=== PATIENT | male | born 1945 | race Caucasian/White ===

== ENCOUNTER 2016-07-13 10:22 | Inpatient (IN) | payer MEDICARE ==
[2016-07-13] MEDS ORDERED: Furosemide 40 MG/4 ML VIAL IVPUSH ONE (10:28)
--- NOTE | 2016-07-13 11:03 | CR ---
Portable chest There is cardiac enlargement. There is mild vascular engorgement. There is diffuse increase of the i nterstitial markings. There are no alveolar infiltrates. There are no effusions. Impression: 1. CHF with mild interstitial edema.
--- NOTE | 2016-07-13 11:28 | EDM.PDOC ---
ED HPI Skin/Rash - General Chief Complaint: Skin Complaint Stated Complaint: LEG PAIN Time Seen by Provider: 07/13/16 10:35 Source: Reports: Patient, EMS History Limitations: Reports: No limitations - History of Present Illness INITIAL COMMENTS - FREE TEXT/NARRATIVE: 70-year-old male brought in by ambulance because of shortness of breath, increased peripheral edema, redness of his legs and leg pain. He says he hasn' t been feeling well for about 1 to 2 months, but over the last 2-3 days his breathing has become much worse, his legs more swollen and painful. He does have home health nursing who called after his arrival and said he "cannot return home, he's vulnerable". He denies any fevers or chills, denies nausea or vomiting. He has had no chest pain. His main concern is his breathing, and pain in his legs. He does not have oxygen at home, on arrival EMS found him to have saturations in the 80s. He responded well to a DuoNeb in route and nasal cannula oxygen. He does not want to be intubated, he is DO NOT RESUSCITATE. Timing: Reports: still present Severity: moderate Associated symptoms: Reports: shortness of breath, cough (Small amount of production), malaise. 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: Reports: Breathing treatments, Other medication(s), Oxygen - Related Data Allergies Allergy/AdvReac Type Severity Reaction Status Date / Time No Known Allergies Allergy Verified 07/13/16 11:11 Home Meds: Ambulatory Orders Medication Instructions Recorded Confirmed Albuterol [Proair HFA] 2 puff INH QID PRN 07/13/16 07/13/16 Carvedilol [Carvedilol] 3.125 mg PO BID 07/13/16 07/13/16 Fluticasone/Salmeterol [Advair 1 puff INH BEDTIME 07/13/16 07/13/16 250-50 Diskus] Furosemide [Furosemide] 1 tab PO DAILY 07/13/16 07/13/16 Insulin Glarg,Human.Rec.Analog 20 units SQ BEDTIME 07/13/16 07/13/16 [Lantus Solostar] Naproxen 500 mg PO BID 07/13/16 07/13/16 Simvastatin [Simvastatin] 20 mg PO BEDTIME 07/13/16 07/13/16 metFORMIN HCl [Metformin HCl] 1,000 mg PO BID 07/13/16 07/13/16 Social & Family History - Tobacco Use Smoking Status *Q: Former Smoker Years of Tobacco use: 50 Packs/Tins Daily: 2 - Caffeine Use Caffeine Use: Reports: Coffee - Recreational Drug Use Recreational Drug Use: No ED ROS GENERAL - Review of Systems Review Of Systems: See Below Constitutional: Reports: malaise, weakness. Denies: fever, chills HEENT: Reports: No symptoms Respiratory: Reports: shortness of breath, cough, sputum Cardiovascular: Denies: Chest pain GI/Abdominal: Denies: Abdominal pain Musculoskeletal: Reports: leg pain (Bilateral) Skin: Reports: erythema (Left lower leg is erythematous, both legs have superficial excoriations that are healing) Neurological: Reports: difficulty walking, weakness. Denies: confusion, headache Psychiatric: Reports: No symptoms ED EXAM, SKIN/RASH Exam: See Below Exam Limited By: No limitations General Appearance: alert, no apparent distress, other (Despite appearing dusky his mental status is intact and he is not in distress) Eye Exam: bilateral eye: EOMI Head: atraumatic Neck: normal inspection Respiratory/Chest: wheezing (Diffuse widespread expiratory wheezes, some decreased air movement on the right) Cardiovascular: regular rate, rhythm GI/Abdominal: soft, non tender, distended (Abdomen seems distended, it may just be obesity) Extremities: other (Tense edema of both lower extremities almost to the hips. Both lower extremities have superficial excoriations, the left lower extremity has diffuse erythema.) Neurological: alert, oriented Psychiatric: normal affect, normal mood Skin: Other (Legs are as described above, he also has a fairly large bruise across the left anterior chest from recent fall) EKG INTERPRETATION Rhythm: NSR EKG Interpretation Comments: Q waves are present in the inferior leads, no direct evidence of ST elevation Course - Vital Signs Last Recorded V/S: Last Vital Signs Temp 97.9 F 07/13/16 11:26 Pulse 85 07/13/16 14:38 Resp 20 07/13/16 11:37 BP 129/83 07/13/16 12:22 Pulse Ox 97 07/13/16 11:37 - Orders/Labs/Meds Orders: Active Orders 24 hr Category Date Time Status CULTURE BLOOD [BC] Urgent Lab 07/13/16 10:35 Received CULTURE BLOOD [BC] Urgent Lab 07/13/16 10:35 Received Blood Culture x2 Reflex Set [OM.PC] Urgent Oth 07/13/16 10:27 Ordered EKG 12 Lead [EK] Routine Ther 07/13/16 10:26 Stop Req Medication Orders Acetaminophen (Tylenol) 650 mg PO Q4H PRN PRN Reason: Pain (Mild 1-3)/fever Albuterol (Ventolin Hfa) 0 gm INH QID PRN PRN Reason: Shortness of Breath Albuterol (Proventil Neb Soln) 2.5 mg NEB Q4H PRN PRN Reason: Shortness Of Breath/wheezing Albuterol/Ipratropium (Duoneb 3.0-0.5 Mg/3 Ml) 3 ml NEB QIDRT [facility] Last Admin: 07/13/16 14:38 Dose: 3 ml Carvedilol (Coreg) 3.125 mg PO DAILY [facility] Dextrose (Glutose 15) 15 gm PO ASDIRECTED PRN PRN Reason: Hypoglycemia Dextrose/Water (Dextrose 50% In Water) 50 ml IV ASDIRECTED PRN PRN Reason: Hypoglycemia Docusate Sodium (Colace) 100 mg PO BID PRN PRN Reason: Constipation Enoxaparin Sodium (Lovenox) 30 mg SUBCUT Q24H [facility] Furosemide (Lasix) 80 mg IVPUSH Q12H [facility] Piperacillin/Tazobactam/ (Dextrose 3.375 gm/ Premix) 50 mls @ 100 mls/hr IV Q6H [facility] Insulin Aspart (Novolog) 0 unit SUBCUT ASDIRECTED [facility] PRN Reason: Protocol Insulin Detemir (Levemir) 20 unit SUBCUT BEDTIME [facility] Magnesium Hydroxide (Milk Of Magnesia) 30 ml PO Q12H PRN PRN Reason: Constipation Mometasone Furoate/Formoterol Fumar (Dulera 200-5 Mcg) 1 puff IH BEDTIME [facility] Ondansetron HCl (Zofran) 4 mg IV Q4H PRN PRN Reason: Nausea/Vomiting Oxycodone HCl (Oxycodone) 5 mg PO Q4H PRN PRN Reason: Pain (moderate 4-6) Polyethylene Glycol (Miralax) 17 gm PO DAILY PRN PRN Reason: Constipation Simvastatin (Zocor) 20 mg PO BEDTIME [facility] Sodium Chloride (Saline Flush) 10 ml FLUSH ASDIRECTED PRN PRN Reason: Keep Vein Open Labs: Laboratory Tests 07/13/16 07/13/16 07/13/16 Range/Units 10:26 10:35 10:35 WBC 15.3 H (4.5-11.0) K/uL RBC 4.67 (4.30-5.90) M/uL Hgb 13.3 (12.0-15.0) g/dL Hct 43.1 (40.0-54.0) % MCV 92 (80-98) fL MCH 29 (27-31) pg MCHC 31 L (32-36) % Plt Count 260 (150-400) K/uL Neut % (Auto) 86 H (36-66) % Lymph % (Auto) 3 L (24-44) % Hart % (Auto) 10 H (2-6) % Eos % (Auto) 0 L (2-4) % Baso % (Auto) 0 (0-1) % Puncture Site Lt brachial ABG pH 7.364 (7.350-7.450) ABG pCO2 38.2 (35.0-42.0) mmHg ABG pO2 103.0 H (75.0-100.0) mmHg ABG HCO3 21.2 L (22.0-26.0) mmol/L ABG Total CO2 19.1 L (23.0-27.0) mmol/L ABG O2 Saturation 97.7 (95.0-98.0) % ABG O2 Content 17.3 (15.0-23.0) %vol ABG Base Excess -3.2 mm/L ABG Hemoglobin 12.9 L (13.5-18.0) g/dL ABG Oxyhemoglobin 94.8 % ABG Carboxyhemoglobin 2.5 H (0.0-1.6) % ABG Methemoglobin 0.5 % Parish Test Passed O2 Delivery Device Nasal cannula Oxygen Flow Rate 2 L Sodium 136 L (140-148) mmol/L Potassium 4.4 (3.6-5.2) mmol/L Chloride 101 (100-108) mmol/L Carbon Dioxide 28 (21-32) mmol/L Anion Gap 11.4 (5.0-14.0) mmol/L BUN 59 H (7-18) mg/dL Creatinine 2.0 H (0.8-1.3) mg/dL Est Cr Clr Drug Dosing 33.88 mL/min Estimated GFR (MDRD) 33 L (>60) Glucose 156 H (74-106) mg/dL Lactic Acid (0.4-2.0) mmol/L Calcium 8.9 (8.5-10.1) mg/dL Total Bilirubin 1.4 H (0.2-1.0) mg/dL AST 46 H (15-37) U/L ALT 34 (12-78) U/L Alkaline Phosphatase 315 H (46-116) U/L Troponin I 0.093 H* (0.000-0.056) ng/mL Total Protein 7.6 (6.4-8.2) g/dL Albumin 3.1 L (3.4-5.0) g/dL Globulin 4.5 H (2.3-3.5) g/dL Albumin/Globulin Ratio 0.7 L (1.2-2.2) Urine Color Urine Appearance Urine pH (4.5-8.0) Ur Specific [place] (1.008-1.030) Urine Protein (NEGATIVE) mg/dL Urine Glucose (UA) (NEGATIVE) mg/dL Urine Ketones (NEGATIVE) mg/dL Urine Occult Blood (NEGATIVE) Urine Nitrite (NEGAITVE) Urine Bilirubin (NEGATIVE) Urine Urobilinogen (NORMAL) mg/dL Ur Leukocyte Esterase (NEGATIVE) Urine RBC (0-5) Urine WBC (0-5) Ur Epithelial Cells Amorphous Sediment Urine Bacteria Urine Mucus 07/13/16 07/13/16 Range/Units 10:35 11:34 WBC (4.5-11.0) K/uL RBC (4.30-5.90) M/uL Hgb (12.0-15.0) g/dL Hct (40.0-54.0) % MCV (80-98) fL MCH (27-31) pg MCHC (32-36) % Plt Count (150-400) K/uL Neut % (Auto) (36-66) % Lymph % (Auto) (24-44) % Hart % (Auto) (2-6) % Eos % (Auto) (2-4) % Baso % (Auto) (0-1) % Puncture Site ABG pH (7.350-7.450) ABG pCO2 (35.0-42.0) mmHg ABG pO2 (75.0-100.0) mmHg ABG HCO3 (22.0-26.0) mmol/L ABG Total CO2 (23.0-27.0) mmol/L ABG O2 Saturation (95.0-98.0) % ABG O2 Content (15.0-23.0) %vol ABG Base Excess mm/L ABG Hemoglobin (13.5-18.0) g/dL ABG Oxyhemoglobin % ABG Carboxyhemoglobin (0.0-1.6) % ABG Methemoglobin % Parish Test O2 Delivery Device Oxygen Flow Rate L Sodium (140-148) mmol/L Potassium (3.6-5.2) mmol/L Chloride (100-108) mmol/L Carbon Dioxide (21-32) mmol/L Anion Gap (5.0-14.0) mmol/L BUN (7-18) mg/dL Creatinine (0.8-1.3) mg/dL Est Cr Clr Drug Dosing mL/min Estimated GFR (MDRD) (>60) Glucose (74-106) mg/dL Lactic Acid 3.0 H (0.4-2.0) mmol/L Calcium (8.5-10.1) mg/dL Total Bilirubin (0.2-1.0) mg/dL AST (15-37) U/L ALT (12-78) U/L Alkaline Phosphatase (46-116) U/L Troponin I (0.000-0.056) ng/mL Total Protein (6.4-8.2) g/dL Albumin (3.4-5.0) g/dL Globulin (2.3-3.5) g/dL Albumin/Globulin Ratio (1.2-2.2) Urine Color Yellow Urine Appearance Clear Urine pH 5.0 (4.5-8.0) Ur Specific [place] 1.020 (1.008-1.030) Urine Protein Negative (NEGATIVE) mg/dL Urine Glucose (UA) Normal (NEGATIVE) mg/dL Urine Ketones Negative (NEGATIVE) mg/dL Urine Occult Blood Negative (NEGATIVE) Urine Nitrite Negative (NEGAITVE) Urine Bilirubin Negative (NEGATIVE) Urine Urobilinogen Normal (NORMAL) mg/dL Ur Leukocyte Esterase Negative (NEGATIVE) Urine RBC 0-5 (0-5) Urine WBC Not seen (0-5) Ur Epithelial Cells Not seen Amorphous Sediment Not seen Urine Bacteria Not seen Urine Mucus Not seen Meds: Medications Generic Name Dose Route Start Last Admin Trade Name Freq PRN Reason Stop Dose Admin Acetaminophen 650 mg 07/13/16 13:30 Tylenol PO Q4H PRN Pain (Mild 1-3)/fever Albuterol 0 gm 07/13/16 13:30 Ventolin Hfa INH QID PRN Shortness of Breath Albuterol 2.5 mg 07/13/16 13:30 Proventil Neb Soln NEB Q4H PRN Shortness Of Breath/wheezing Albuterol/Ipratropium 3 ml 07/13/16 15:00 07/13/16 14:38 Duoneb 3.0-0.5 Mg/3 Ml NEB 3 ml QIDRT [facility] Administration Carvedilol 3.125 mg 07/14/16 09:00 Coreg PO DAILY [facility] Dextrose 15 gm 07/13/16 13:30 Glutose 15 PO ASDIRECTED PRN Hypoglycemia Dextrose/Water 50 ml 07/13/16 13:30 Dextrose 50% In Water IV ASDIRECTED PRN Hypoglycemia Docusate Sodium 100 mg 07/13/16 13:30 Colace PO BID PRN Constipation Enoxaparin Sodium 30 mg 07/13/16 16:00 Lovenox SUBCUT Q24H [facility] Furosemide 80 mg 07/13/16 21:00 Lasix IVPUSH Q12H [facility] Piperacillin/Tazobactam/ 50 mls @ 100 mls/hr 07/13/16 17:00 Dextrose 3.375 gm/ Premix IV Q6H [facility] Insulin Aspart 0 unit 07/13/16 13:30 Novolog SUBCUT ASDIRECTED [facility] Protocol Insulin Detemir 20 unit 07/13/16 21:00 Levemir SUBCUT BEDTIME [facility] Magnesium Hydroxide 30 ml 07/13/16 13:30 Milk Of Magnesia PO Q12H PRN Constipation Mometasone Furoate/Formoterol Fumar 1 puff 07/13/16 21:00 Dulera 200-5 Mcg IH BEDTIME [facility] Ondansetron HCl 4 mg 07/13/16 13:30 Zofran IV Q4H PRN Nausea/Vomiting Oxycodone HCl 5 mg 03/10/17 13:30 Oxycodone PO Q4H PRN Pain (moderate 4-6) Polyethylene Glycol 17 gm 07/13/16 13:30 Miralax PO DAILY PRN Constipation Simvastatin 20 mg 07/13/16 21:00 Zocor PO BEDTIME [facility] Sodium Chloride 10 ml 07/13/16 13:30 Saline Flush FLUSH ASDIRECTED PRN Keep Vein Open Discontinued Medications Generic Name Dose Route Start Last Admin Trade Name Freezekiel PRN Reason Stop Dose Admin Furosemide 80 mg 07/13/16 10:28 07/13/16 12:22 Lasix IVPUSH 07/13/16 10:29 80 mg ONETIME ONE Administration Ampicillin Sodium/Sulbactam 100 mls @ 200 mls/hr 07/13/16 11:47 07/13/16 12: 20 Sodium 3 gm/ Sodium Chloride IV 07/13/16 12:16 200 mls/hr ONETIME ONE Administration - Re-Assessments/Exams Free Text/Narrative Re-Assessment/Exam: 07/13/16 11:44 An IV was started and the patient was given 80 mg of IV Lasix. A chest x-ray showed likely pulmonary congestion but no infiltrate. He was afebrile. CBC, blood cultures, ABGs, troponin and CMP were obtained. Troponin was 0.09. ABGs were actually reassuring, he was not retaining CO2 and his O2 was 100, pH was normal. 07/13/16 11:46 After blood cultures were drawn patient was given one dose of IV Unasyn. Dr. West was consulted for likely admission. Departure - Departure Time of Disposition: 14:19 Disposition: Admitted As Inpatient 65 Condition: poor Clinical Impression: Cellulitis of leg, left Congestive heart failure Qualifiers: Congestive heart failure type: combined Congestive heart failure chronicity: acute on chronic Qualified Code(s): I50.43 - Acute on chronic combined systolic (congestive) and diastolic (congestive) heart failure - My Orders Last 24 Hours: My Active Orders 07/13/16 10:26 EKG 12 Lead [EK] Routine 07/13/16 10:27 Blood Culture x2 Reflex Set [OM.PC] Urgent 07/13/16 10:35 CULTURE BLOOD [BC] Urgent CULTURE BLOOD [BC] Urgent - Assessment/Plan Last 24 Hours: My Active Orders 07/13/16 10:26 EKG 12 Lead [EK] Routine 07/13/16 10:27 Blood Culture x2 Reflex Set [OM.PC] Urgent 07/13/16 10:35 CULTURE BLOOD [BC] Urgent CULTURE BLOOD [BC] Urgent
[2016-07-13] MEDS ORDERED: Ampicillin/Sulbactam Na 3 GM in Sodium Chloride 0.9% 100 ML IV ONE (11:47)
[2016-07-13] MEDS ORDERED: Sodium Chloride 0.9% 10 ML Syringe FLUSH PRN (13:30)
[2016-07-13] MEDS ORDERED: Polyethylene Glycol 3350 Powder 17 GM Packet PO PRN (13:30)
[2016-07-13] MEDS ORDERED: 50% Dextrose in Water 50 ML Syringe IV PRN (13:30)
[2016-07-13] MEDS ORDERED: Albuterol 8 GM Inhaler INH PRN (13:30)
[2016-07-13] MEDS ORDERED: Piperacillin/Tazobactam 3.375 GM in Sodium Chloride 0.9% 50 ML IV SCH (13:30)
[2016-07-13] MEDS ORDERED: Glucose Gel 15 GM in 37.5 GM Tube PO PRN (13:30)
[2016-07-13] MEDS ORDERED: Ondansetron 4 MG/2 ML SDV IV PRN (13:30)
[2016-07-13] MEDS ORDERED: Docusate Sodium 100 MG Cap PO PRN (13:30)
[2016-07-13] MEDS ORDERED: Albuterol 0.083% 2.5 MG/3 ML Neb Soln NEB PRN (13:30)
--- NOTE | 2016-07-13 13:33 | PCM.HP ---
H&P History of Present Illness - General Date of Service: 07/13/16 Admit Problem/Dx: Admission Diagnosis/Problem Admission Diagnosis/Problem Congestive heart failure Source of Information: Patient, Old records, Provider, RN notes reviewed History Limitations: Reports: No limitations - History of Present Illness Initial Comments - Free Text/Narative: This patient is a 70-year-old gentleman who is admitted through the emergency department because of shortness of breath and increased peripheral edema secondary to congestive heart failure with pulmonary edema. He is felt to have a history of coronary artery disease and 3 years ago was recommended to have an angiogram which he never followed through with. Over the past few months has noted progressive increase in shortness of breath and peripheral edema. Symptoms have become significantly worse over the past week and his developed increased pain and erythema in his left lower extremity. He is had symptoms of marked shortness of breath with minimal exertion as well as PND and orthopnea. He's not been aware of significant fevers chills or sweats, he does have an underlying history of diabetes. He denies recent symptoms of chest pain or pressure, troponin level is mildly elevated on admission but this is likely secondary to demand ischemia with his congestive heart failure as well as chronic kidney disease. - Related Data Allergies/Adverse Reactions: Allergies Allergy/AdvReac Type Severity Reaction Status Date / Time No Known Allergies Allergy Verified 07/13/16 11:11 Home Medications: Home Meds Albuterol [Proair HFA] 2 puff INH QID PRN 07/13/16 [History] Carvedilol [Carvedilol] 1 tab PO DAILY 07/13/16 [History] Fluticasone/Salmeterol [Advair 250-50 Diskus] 1 puff INH BEDTIME 07/13/16 [ History] Furosemide [Furosemide] 1 tab PO DAILY 07/13/16 [History] Insulin Glarg,Human.Rec.Analog [Lantus Solostar] 20 units SQ BEDTIME 07/13/16 [ History] Naproxen [Take Home: Naproxen 500 MG, 4 Tab Pack] 1 tab PO BID 07/13/16 [History ] Simvastatin [Simvastatin] 1 tab PO BEDTIME 07/13/16 [History] metFORMIN HCl [Metformin HCl] 1 tab PO DAILY 07/13/16 [History] Past Medical History HEENT History: Reports: Cataract Cardiovascular History: Reports: High cholesterol, Hypertension Respiratory History: Reports: COPD Musculoskeletal History: Reports: Fracture Endocrine/Metabolic History: Reports: Diabetes, type II - Past Surgical History Head Surgeries/Procedures: Reports: None HEENT Surgical History: Reports: Cataract surgery GI Surgical History: Reports: Appendectomy Social & Family History - Tobacco Use Smoking Status *Q: Former Smoker Years of Tobacco use: 50 Packs/Tins Daily: 2 - Caffeine Use Caffeine Use: Reports: Coffee - Recreational Drug Use Recreational Drug Use: No H&P Review of Systems - Review of Systems: Review Of Systems: See Below General: Reports: weakness. Denies: fever, chills HEENT: Reports: no symptoms Pulmonary: Reports: shortness of breath, wheezing. Denies: pleuritic chest pain , cough, sputum, hemoptysis Cardiovascular: Reports: dyspnea on exertion, orthopnea, PND, edema. Denies: chest pain, palpitations, lightheadedness, syncope Gastrointestinal: Reports: No symptoms Genitourinary: Reports: no symptoms Musculoskeletal: Reports: no symptoms Skin: Reports: erythema (Left lower leg and foot) Psychiatric: Reports: no symptoms Neurological: Reports: no symptoms Hematologic/Lymphatic: Reports: no symptoms Immunologic: Reports: no symptoms Exam - Exam Exam: See Below - Vital Signs Vital Signs: Last Vital Signs Temp 97.9 F 07/13/16 11:26 Pulse 85 07/13/16 11:37 Resp 20 07/13/16 11:37 BP 129/83 07/13/16 12:22 Pulse Ox 97 07/13/16 11:37 Weight: 235 lb - Exam Quality Assessment: supplemental oxygen, DVT prophylaxis General: alert, oriented, cooperative, mild distress HEENT: Conjunctiva clear, Hearing intact, Mucosa moist & pink, Nares patent, Normal nasal septum, Posterior pharynx clear, Pupils equal, Pupils reactive Neck: supple, trachea midline, +2 carotid pulse wo bruit Lungs: Decreased breath sounds, Rales, Wheezing. No: Crackles, Rhonchi, Rub, Stridor Cardiovascular: regular rate, regular rhythm, normal S1, normal S2. No: irregular rhythm, bradycardia, tachycardia, systolic murmur, diastolic murmur Abdomen: normal bowel sounds, soft Back Exam: normal inspection, full range of motion, NT Extremities: edema Skin: other (Erythema left lower extremity and foot) Neurological: cranial nerves intact, strength equal bilateral, normal speech, normal tone, sensation intact. No: focal deficit Neuro Extensive - Mental Status: alert, oriented x3, normal mood/affect, normal cognition, memory intact - Patient Data Result Diagrams: 07/13/16 10:35 07/13/16 10:35 *Q Meaningful Use (ADM) - VTE *Q VTE Criteria *Q: VTE Pharmacological Contraindications *Q: Renal Impairment - VTE Risk Assess *Q Each Risk Factor Represents 1 Point: Swollen Legs, Current, Obesity (BMI greater than 30), Congestive Heart Failure, Less than 1 Month, Abnormal Pulmonary Function (COPD) Total Score 1 Point Risk Factors: 4 Each Risk Factor Represents 2 Points: Age 60 - 74 Years Total Score 2 Point Risk Factors: 2 Each Risk Factor Represents 3 Points: None Total Score 3 Point Risk Factors: 0 Each Risk Factor Represents 5 Points: None Total Score 5 Point Risk Factors: 0 Venous Thromboembolism Risk Factor Score *Q: 6 - Stroke *Q Stroke Criteria *Q: - AMI *Q AMI Criteria *Q: Problem List Initiated/Reviewed/Updated: Yes Orders Last 24hrs: Active Orders 24 hr Category Date Time Status Resuscitation Status Routine Resus Stat 07/13/16 12:49 Ordered Assessment/Plan Comment:: ASSESSMENT AND PLAN CONGESTIVE HEART FAILURE-on evaluation today is noted to have pulmonary edema which is likely the underlying cause of his increased shortness of breath PND and orthopnea. He does have known COPD and likely has a component of cor pulmonale which is contributing to his marked peripheral edema. -IV Lasix 80 mg every 12 hours -2 g sodium diet -Echocardiogram when available on Saturday -Discontinue approximately and any other nonsteroidal medications -Consider addition of IAN inhibitor depending on results of echocardiogram COPD-no evidence of acute exacerbation, he does have a [id number] smoking history. He discontinued smoking approximately 6 years ago. No evidence of underlying respiratory tract infection at the present time -Supplemental oxygen as needed -Nebulized albuterol and duo nebs CELLULITIS LEFT LEG-he has edema in both legs, there are several open areas on each leg. 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 -Blood culture pending -IV Zosyn, expanded spectrum antibiotic required because of underlying diabetes -Management of peripheral edema as above CHRONIC KIDNEY DISEASE STAGE III -Monitor renal function and urine output closely during hospital stay TYPE 2 DIABETES MELLITUS -Hold metformin given decreased renal function and mild lactic acidosis -4 times a day glucometers -Continue usual dose of long-acting insulin -Low-dose sliding slow NovoLog ELEVATED TROPONIN-likely secondary to demand ischemia in the setting of congestive heart failure with respiratory compromise as well as underlying chronic kidney disease -Serial troponin levels LACTIC ACIDOSIS-likely secondary to current respiratory compromise with congestive heart failure and COPD -Repeat in the a.m. following diuresis MAINTENANCE ISSUES -DVT prophylaxis; Lovenox 30 mg subcutaneous daily -GI prophylaxis; none indicated -Arceo catheter; not indicated -Nutrition; consistent carb and 2 g sodium diet -Nicotine dependence; not required CODE STATUS-FULL CODE ADMISSION STATUS-patient will be admitted to inpatient status, expect at least a 2 night hospital stay for evaluation and management of problems as outlined above. At the time of this admission I do not reasonably expected evaluation and management of this problem will require more than a 96 hour hospital stay. DISPOSITION-anticipate discharge to home versus detention PRIMARY CARE PROVIDER-
[2016-07-13] MEDS ORDERED: Piperacillin/Tazobactam/Dext 3.375 GM in Premix Bag 1 BAG IV SCH (14:00)
[2016-07-13] MEDS: Albuterol/Ipratropium 3.0-0.5 MG/3 ML Neb Soln NEB SCH ×2 (14:38→21:23)
[2016-07-13] MEDS: Enoxaparin 30 MG/0.3 ML Syringe SUBCUT SCH (16:07)
[2016-07-13] MEDS: Piperacillin/Tazobactam/Dext 3.375 GM in Premix Bag 1 BAG IV SCH ×2 (19:17→23:27)
[2016-07-13] MEDS: Furosemide 40 MG/4 ML VIAL IVPUSH SCH (19:56)
[2016-07-13] MEDS ORDERED: Non-Formulary Medication 1 Each (Fluticasone/Salmeterol [Advair 250-50 Diskus] 1 PUFF) INH SCH (21:00)
[2016-07-13] MEDS ORDERED: INSULIN GLARG HUMAN REC ANALOG 20 UNIT SQ SCH (21:00)
[2016-07-13] MEDS ORDERED: [UNRECOGNIZED DRUG - OTHER] SQ SCH (21:00)
[2016-07-13] MEDS: Formoterol/Mometasone 200-5 MCG 8.8 GM Inhaler IH SCH (21:19)
[2016-07-13] MEDS: Simvastatin 20 MG Tab PO SCH (21:19)
[2016-07-13] MEDS: Insulin Detemir 100 Units/ML 3 ML Pen SUBCUT SCH (21:23)
[2016-07-14] MEDS: Furosemide 40 MG/4 ML VIAL IVPUSH SCH ×3 (00:39→21:32)
[2016-07-14] MEDS: Piperacillin/Tazobactam/Dext 3.375 GM in Premix Bag 1 BAG IV SCH ×4 (05:00→23:32)
[2016-07-14] MEDS: Albuterol/Ipratropium 3.0-0.5 MG/3 ML Neb Soln NEB SCH ×4 (07:05→22:49)
[2016-07-14] MEDS ORDERED: Carvedilol 3.125 MG Tab PO SCH (09:00)
[2016-07-14] MEDS: Potassium Chloride 20 MEQ Tab.ER PO SCH ×2 (10:03→18:07)
--- NOTE | 2016-07-14 11:27 | PCM.PN ---
- General Info Date of Service: 07/14/16 - Review of Systems General: Reports: weakness. Denies: fever, chills Pulmonary: Reports: shortness of breath. Denies: pleuritic chest pain, cough, sputum, hemoptysis, wheezing Cardiovascular: Reports: dyspnea on exertion, edema. Denies: chest pain, palpitations, orthopnea, PND, lightheadedness Gastrointestinal: Reports: No symptoms Systems Review Comment:: This patient has felt somewhat improved since admission with increased strength and decrease in peripheral edema. Diuresis has been excellent thus far and he has remained afebrile with stable vital signs. - Patient Data Vitals - most recent: Last Vital Signs Temp 98.4 F 07/14/16 08:00 Pulse 91 07/14/16 10:02 Resp 19 07/14/16 10:00 BP 117/64 07/14/16 10:02 Pulse Ox 98 07/14/16 10:00 Weight - most recent: 234 lb 14.4 oz I&O - last 24 hours: Intake & Output 07/13/16 07/14/16 07/14/16 22:59 06:59 14:59 Intake Total 240 580 600 Output Total 2300 2500 850 Balance -2060 -1920 -250 Lab Results last 24 hrs: Laboratory Results - last 24 hr 07/13/16 07/14/16 07/14/16 Range/Units 15:50 05:00 05:11 WBC 14.3 H (4.5-11.0) K/uL RBC 4.50 (4.30-5.90) M/uL Hgb 12.9 (12.0-15.0) g/dL Hct 41.3 (40.0-54.0) % MCV 92 (80-98) fL MCH 29 (27-31) pg MCHC 31 L (32-36) % Plt Count 233 (150-400) K/uL Neut % (Auto) 82 H (36-66) % Lymph % (Auto) 4 L (24-44) % [place] % (Auto) 12 H (2-6) % Eos % (Auto) 1 L (2-4) % Baso % (Auto) 0 (0-1) % Sodium (140-148) mmol/L Potassium (3.6-5.2) mmol/L Chloride (100-108) mmol/L Carbon Dioxide (21-32) mmol/L Anion Gap (5.0-14.0) mmol/L BUN (7-18) mg/dL Creatinine (0.8-1.3) mg/dL Est Cr Clr Drug Dosing mL/min Estimated GFR (MDRD) (>60) Glucose (74-106) mg/dL Calcium (8.5-10.1) mg/dL Troponin I 0.082 H* (0.000-0.056) ng/mL TSH, Ultra Sensitive 0.784 (0.358-3.740) uIU/mL 07/14/16 Range/Units 05:11 WBC (4.5-11.0) K/uL RBC (4.30-5.90) M/uL Hgb (12.0-15.0) g/dL Hct (40.0-54.0) % MCV (80-98) fL MCH (27-31) pg MCHC (32-36) % Plt Count (150-400) K/uL Neut % (Auto) (36-66) % Lymph % (Auto) (24-44) % [place] % (Auto) (2-6) % Eos % (Auto) (2-4) % Baso % (Auto) (0-1) % Sodium 143 (140-148) mmol/L Potassium 3.7 (3.6-5.2) mmol/L Chloride 106 (100-108) mmol/L Carbon Dioxide 31 (21-32) mmol/L Anion Gap 5.9 (5.0-14.0) mmol/L BUN 58 H (7-18) mg/dL Creatinine 2.0 H (0.8-1.3) mg/dL Est Cr Clr Drug Dosing 33.88 mL/min Estimated GFR (MDRD) 33 L (>60) Glucose 101 (74-106) mg/dL Calcium 8.8 (8.5-10.1) mg/dL Troponin I 0.125 H* (0.000-0.056) ng/mL TSH, Ultra Sensitive (0.358-3.740) uIU/mL Med Orders - Current: Current Medications Acetaminophen (Tylenol) 650 mg PO Q4H PRN PRN Reason: Pain (Mild 1-3)/fever Albuterol (Ventolin Hfa) 0 gm INH QID PRN PRN Reason: Shortness of Breath Albuterol (Proventil Neb Soln) 2.5 mg NEB Q4H PRN PRN Reason: Shortness Of Breath/wheezing Albuterol/Ipratropium (Duoneb 3.0-0.5 Mg/3 Ml) 3 ml NEB QIDRT [facility] Last Admin: 07/14/16 10:46 Dose: 3 ml Carvedilol (Coreg) 3.125 mg PO DAILY [facility] Last Admin: 07/14/16 10:02 Dose: 3.125 mg Dextrose (Glutose 15) 15 gm PO ASDIRECTED PRN PRN Reason: Hypoglycemia Dextrose/Water (Dextrose 50% In Water) 50 ml IV ASDIRECTED PRN PRN Reason: Hypoglycemia Docusate Sodium (Colace) 100 mg PO BID PRN PRN Reason: Constipation Enoxaparin Sodium (Lovenox) 30 mg SUBCUT Q24H [facility] Last Admin: 07/13/16 16:07 Dose: 30 mg Furosemide (Lasix) 60 mg IVPUSH Q12H [facility] Last Admin: 07/14/16 10:03 Dose: 60 mg Piperacillin/Tazobactam/ (Dextrose 3.375 gm/ Premix) 50 mls @ 100 mls/hr IV Q6H [facility] Last Admin: 07/14/16 05:00 Dose: 100 mls/hr Insulin Aspart (Novolog) 0 unit SUBCUT ASDIRECTED [facility] PRN Reason: Protocol Insulin Detemir (Levemir) 20 unit SUBCUT BEDTIME [facility] Last Admin: 07/13/16 21:23 Dose: 20 units Magnesium Hydroxide (Milk Of Magnesia) 30 ml PO Q12H PRN PRN Reason: Constipation Mometasone Furoate/Formoterol Fumar (Dulera 200-5 Mcg) 1 puff IH BEDTIME [facility] Last Admin: 07/13/16 21:19 Dose: 1 inhaler Ondansetron HCl (Zofran) 4 mg IV Q4H PRN PRN Reason: Nausea/Vomiting Oxycodone HCl (Oxycodone) 5 mg PO Q4H PRN PRN Reason: Pain (moderate 4-6) Polyethylene Glycol (Miralax) 17 gm PO DAILY PRN PRN Reason: Constipation Potassium Chloride (Klor-Con M20) 40 meq PO BIDMEALS [facility] Last Admin: 07/14/16 10:03 Dose: 40 meq Simvastatin (Zocor) 20 mg PO BEDTIME [facility] Last Admin: 07/13/16 21:19 Dose: 20 mg Sodium Chloride (Saline Flush) 10 ml FLUSH ASDIRECTED PRN PRN Reason: Keep Vein Open Discontinued Medications Furosemide (Lasix) 80 mg IVPUSH ONETIME ONE Stop: 07/13/16 10:29 Last Admin: 07/13/16 12:22 Dose: 80 mg Furosemide (Lasix) 80 mg IVPUSH Q12H [facility] Last Admin: 07/14/16 00:39 Dose: Not Given Ampicillin Sodium/Sulbactam (Sodium 3 gm/ Sodium Chloride) 100 mls @ 200 mls/ hr IV ONETIME ONE Stop: 07/13/16 12:16 Last Admin: 07/13/16 12:20 Dose: 200 mls/hr - Exam Quality Assessment: DVT prophylaxis General: alert, oriented, cooperative Lungs: Normal respiratory effort, Decreased breath sounds. No: Crackles, Rales , Rhonchi, Rub, Stridor, Wheezing Cardiovascular: regular rate, regular rhythm, no murmurs. No: irregular rhythm , bradycardia, tachycardia, murmurs, gallops Abdomen: bowel sounds present, soft, no tenderness, no distension Extremities: edema Skin: warm, dry, intact - Problem List Review Problem List Initiated/Reviewed/Updated: Yes - My Orders Last 24 Hours: My Active Orders 07/13/16 12:49 Resuscitation Status Routine 07/13/16 13:30 Patient Status [ADT] Routine Blood Glucose Check, Bedside [RC] QIDACANDBED Communication Order [RC] ASDIRECTED Diabetes Education [RC] Click to Edit Height and Weight [RC] DAILY Intake and Output [RC] QSHIFT Notify Provider Vital Signs [RC] ASDIRECTED Notify Provider [RC] PRN Oxygen Therapy [RC] Q12H RT Aerosol Therapy [RC] ASDIRECTED Up With Assistance [RC] ASDIRECTED VTE/DVT Education [RC] Per Unit Routine PT Evaluation and Treatment [CONS] Routine Acetaminophen [Tylenol] 650 mg PO Q4H PRN Albuterol [Proventil Neb Soln] 2.5 mg NEB Q4H PRN Dextrose 50% in Water 50 ml IV ASDIRECTED PRN Dextrose [Glutose 15] 15 gm PO ASDIRECTED PRN Docusate Sodium [Colace] 100 mg PO BID PRN Insulin Aspart [NovoLOG] See Protocol SUBCUT ASDIRECTED Magnesium Hydroxide [Milk of Magnesia] 30 ml PO Q12H PRN Ondansetron [Zofran] 4 mg IV Q4H PRN Polyethylene Glycol 3350 [MiraLAX] 17 gm PO DAILY PRN Sodium Chloride 0.9% [Saline Flush] 10 ml FLUSH ASDIRECTED PRN oxyCODONE 5 mg PO Q4H PRN Saline Lock Insert [OM.PC] Routine 07/13/16 15:00 Albuterol/Ipratropium [DuoNeb 3.0-0.5 MG/3 ML] 3 ml NEB QIDRT 07/13/16 16:00 Enoxaparin [Lovenox] 30 mg SUBCUT Q24H 07/13/16 17:00 Piperacillin/Tazobactam/Dext [Zosyn in Dextrose Iso-Osmotic 3.375 GM] 3.375 gm Premix Bag 1 bag IV Q6H 07/13/16 21:00 Insulin Detemir [Levemir] 20 unit SUBCUT BEDTIME Mometasone/Formoterol [Dulera 200-5 MCG] 1 puff IH BEDTIME 07/13/16 Lunch 2 Gram Sodium Diet [DIET] Consistent Carbohydrate Diet [DIET] 07/14/16 09:00 Furosemide [Lasix] 60 mg IVPUSH Q12H Potassium Chloride [Klor-Con M20] 40 meq PO BIDMEALS 07/14/16 11:20 Cardiac Monitoring [RC] .As Directed 07/14/16 11:23 Vital Signs [RC] Q4H 07/15/16 05:00 BASIC METABOLIC PANEL,BMP [CHEM] Timed CBC WITH AUTO DIFF [HEME] Timed MAGNESIUM [CHEM] Timed TROPONIN I [CHEM] Timed 07/16/16 08:00 Echo Comp wo Cont [US] Urgent - Plan Plan:: ASSESSMENT AND PLAN CONGESTIVE HEART FAILURE-on evaluation today is noted to have pulmonary edema which is likely the underlying cause of his increased shortness of breath PND and orthopnea. He does have known COPD and likely has a component of cor pulmonale which is contributing to his marked peripheral edema. -IV Lasix 60 mg every 12 hours -2 g sodium diet -Echocardiogram when available on Saturday -Discontinue nonsteroidal medications -Consider addition of IAN inhibitor depending on results of echocardiogram COPD-no evidence of acute exacerbation, he does have a [id number] smoking history. He discontinued smoking approximately 6 years ago. No evidence of underlying respiratory tract infection at the present time -Supplemental oxygen as needed -Nebulized albuterol and duo nebs CELLULITIS LEFT LEG-he has edema in both legs, there are several open areas on each leg. 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 -Blood culture pending -IV Zosyn, expanded spectrum antibiotic required because of underlying diabetes -Management of peripheral edema as above CHRONIC KIDNEY DISEASE STAGE III -Monitor renal function and urine output closely during hospital stay TYPE 2 DIABETES MELLITUS -Hold metformin given decreased renal function and mild lactic acidosis -4 times a day glucometers -Continue usual dose of long-acting insulin -Low-dose sliding slow NovoLog ELEVATED TROPONIN-likely secondary to demand ischemia in the setting of congestive heart failure with respiratory compromise as well as underlying chronic kidney disease -Serial troponin levels LACTIC ACIDOSIS-likely secondary to current respiratory compromise with congestive heart failure and COPD -Repeat in the a.m. following diuresis MAINTENANCE ISSUES -DVT prophylaxis; Lovenox 30 mg subcutaneous daily -GI prophylaxis; none indicated -Arceo catheter; not indicated -Nutrition; consistent carb and 2 g sodium diet -Nicotine dependence; not required CODE STATUS-FULL CODE ADMISSION STATUS-patient will be admitted to inpatient status, expect at least a 2 night hospital stay for evaluation and management of problems as outlined above. At the time of this admission I do not reasonably expected evaluation and management of this problem will require more than a 96 hour hospital stay. DISPOSITION-anticipate discharge to home versus long-term PRIMARY CARE PROVIDER-
[2016-07-14] MEDS: oxyCODONE 5 MG Tab PO PRN (14:12)
[2016-07-14] MEDS: Enoxaparin 30 MG/0.3 ML Syringe SUBCUT SCH (17:34)
[2016-07-14] MEDS: Insulin Aspart 100 Units/ML 3 ML Pen SUBCUT SCH (18:11)
[2016-07-14] MEDS: Carvedilol 3.125 MG Tab PO SCH (21:31)
[2016-07-14] MEDS: Simvastatin 20 MG Tab PO SCH (21:32)
[2016-07-14] MEDS: Insulin Detemir 100 Units/ML 3 ML Pen SUBCUT SCH (21:33)
[2016-07-14] MEDS ORDERED: Haloperidol Lactate 5 MG/ML SDV IVPUSH ONE ×3 (22:13→23:24)
--- NOTE | 2016-07-14 22:34 | PCM.SN ---
- Free Text/Narrative Note: time 22:05 call from 2 [facility]; request to see Mr. Schulz who is agitated and confused. O: vital signs 98.6-90-24 b/p 130/81 oxygen sat 89% room air, blood glucose 144 patient is noted to be confused and agitated, trying to bite and swinging at the nurses with closed fist, he is orientated to date and time, not place or person. Lungs coarse breath sounds bilateral, heart S1-S2, abdomen distended and nontender, bowel sounds positive x4 quadrant., Bilateral lower legs with weeping edema. Assessment: nighttime evening confusion plan: consult with hospitalist internal medicine, -labs: CBC, BMP. -Medication ordered give Haldol 2 mg IV now, may repeat 2 mg dose in 30 minutes if still agitated. -then Haldol give 2 - 5 milligrams IV every 2 hours when necessary agitation. Continue with close monitoring. 22:30; with the assistance of multiple nurses patient was given single dose of Haldol 2mg IV. Labs are pending until patient is more calm and relaxed.
[2016-07-14] MEDS: Haloperidol Lactate 5 MG/ML SDV IVPUSH PRN (22:46)
[2016-07-14] MEDS: Formoterol/Mometasone 200-5 MCG 8.8 GM Inhaler IH SCH (22:49)
[2016-07-14] MEDS ORDERED: LORazepam 2 MG/ML MDV IVPUSH ONE (23:59)
[2016-07-15] MEDS: Piperacillin/Tazobactam/Dext 3.375 GM in Premix Bag 1 BAG IV SCH ×2 (04:33→13:21)
[2016-07-15] MEDS: Albuterol/Ipratropium 3.0-0.5 MG/3 ML Neb Soln NEB SCH ×3 (07:33→14:38)
[2016-07-15] MEDS: Potassium Chloride 20 MEQ Tab.ER PO SCH ×2 (08:41→17:40)
[2016-07-15] MEDS: Carvedilol 3.125 MG Tab PO SCH ×2 (08:42→20:32)
[2016-07-15] MEDS: Furosemide 40 MG/4 ML VIAL IVPUSH SCH (08:44)
[2016-07-15] MEDS: oxyCODONE 5 MG Tab PO PRN (08:46)
[2016-07-15] MEDS: Acetaminophen 325 MG Tab PO PRN ×2 (08:47→20:29)
[2016-07-15] MEDS ORDERED: Magnesium Sulfate/Water 2 GM in Premix Bag 1 BAG IV ONE ×2 (09:30→18:00)
--- NOTE | 2016-07-15 13:11 | PCM.PN ---
- General Info Date of Service: 07/15/16 Functional Status: Reports: tolerating diet, urinating - Review of Systems General: Reports: weakness. Denies: fever, chills Pulmonary: Reports: no symptoms Cardiovascular: Reports: edema. Denies: chest pain, palpitations, dyspnea on exertion, orthopnea, PND, lightheadedness Gastrointestinal: Reports: No symptoms Systems Review Comment:: This patient has experienced good diuresis since admission with significant improvement in his peripheral edema and as well as cellulitis of his left leg. He did become agitated last night likely secondary to his underlying dementia, he received IV Haldol and lorazepam with good results. This morning he is somewhat lethargic and sleepy. Vital signs have been stable and he has remained afebrile. - Patient Data Vitals - most recent: Last Vital Signs Temp 98.6 F 07/15/16 10:40 Pulse 71 07/15/16 10:40 Resp 20 07/15/16 10:40 BP 109/72 07/15/16 10:40 Pulse Ox 94 L 07/15/16 10:40 Weight - most recent: 227 lb 1.6 oz I&O - last 24 hours: Intake & Output 07/14/16 07/15/16 07/15/16 21:59 06:59 14:59 Intake Total 290 Output Total Balance 290 Lab Results last 24 hrs: Laboratory Results - last 24 hr 07/14/16 07/14/16 07/15/16 Range/Units 22:11 22:11 05:30 WBC 15.6 H 16.6 H (4.5-11.0) K/uL RBC 4.73 4.44 (4.30-5.90) M/uL Hgb 13.4 12.5 (12.0-15.0) g/dL Hct 43.5 40.9 (40.0-54.0) % MCV 92 92 (80-98) fL MCH 28 28 (27-31) pg MCHC 31 L 31 L (32-36) % Plt Count 260 226 (150-400) K/uL Neut % (Auto) 84 H 81 H (36-66) % Lymph % (Auto) 4 L 5 L (24-44) % [place] % (Auto) 10 H 12 H (2-6) % Eos % (Auto) 2 2 (2-4) % Baso % (Auto) 0 0 (0-1) % Sodium 140 (140-148) mmol/L Potassium 4.5 (3.6-5.2) mmol/L Chloride 102 (100-108) mmol/L Carbon Dioxide 31 (21-32) mmol/L Anion Gap 6.9 (5.0-14.0) mmol/L BUN 60 H (7-18) mg/dL Creatinine 2.6 H (0.8-1.3) mg/dL Est Cr Clr Drug Dosing 26.06 mL/min Estimated GFR (MDRD) 24 L (>60) Glucose 132 H (74-106) mg/dL Calcium 8.8 (8.5-10.1) mg/dL Magnesium (1.8-2.4) mg/dL Troponin I (0.000-0.056) ng/mL 07/15/16 Range/Units 05:30 WBC (4.5-11.0) K/uL RBC (4.30-5.90) M/uL Hgb (12.0-15.0) g/dL Hct (40.0-54.0) % MCV (80-98) fL MCH (27-31) pg MCHC (32-36) % Plt Count (150-400) K/uL Neut % (Auto) (36-66) % Lymph % (Auto) (24-44) % [place] % (Auto) (2-6) % Eos % (Auto) (2-4) % Baso % (Auto) (0-1) % Sodium 142 (140-148) mmol/L Potassium 4.0 (3.6-5.2) mmol/L Chloride 104 (100-108) mmol/L Carbon Dioxide 32 (21-32) mmol/L Anion Gap 5.8 (5.0-14.0) mmol/L BUN 58 H (7-18) mg/dL Creatinine 2.4 H (0.8-1.3) mg/dL Est Cr Clr Drug Dosing 28.23 mL/min Estimated GFR (MDRD) 27 L (>60) Glucose 86 (74-106) mg/dL Calcium 8.7 (8.5-10.1) mg/dL Magnesium 1.7 L (1.8-2.4) mg/dL Troponin I 0.138 H* (0.000-0.056) ng/mL Med Orders - Current: Current Medications Acetaminophen (Tylenol) 650 mg PO Q4H PRN PRN Reason: Pain (Mild 1-3)/fever Last Admin: 07/15/16 08:47 Dose: 650 mg Albuterol (Ventolin Hfa) 0 gm INH QID PRN PRN Reason: Shortness of Breath Albuterol (Proventil Neb Soln) 2.5 mg NEB Q4H PRN PRN Reason: Shortness Of Breath/wheezing Albuterol/Ipratropium (Duoneb 3.0-0.5 Mg/3 Ml) 3 ml NEB QIDRT [facility] Last Admin: 07/15/16 11:04 Dose: 3 ml Carvedilol (Coreg) 3.125 mg PO BID [facility] Last Admin: 07/15/16 08:42 Dose: 3.125 mg Dextrose (Glutose 15) 15 gm PO ASDIRECTED PRN PRN Reason: Hypoglycemia Dextrose/Water (Dextrose 50% In Water) 50 ml IV ASDIRECTED PRN PRN Reason: Hypoglycemia Docusate Sodium (Colace) 100 mg PO BID PRN PRN Reason: Constipation Enoxaparin Sodium (Lovenox) 30 mg SUBCUT Q24H [facility] Last Admin: 07/14/16 17:34 Dose: 30 mg Furosemide (Lasix) 60 mg IVPUSH Q24H [facility] Haloperidol Lactate (Haldol) 0 mg IVPUSH Q2H PRN PRN Reason: Agitation Last Admin: 07/14/16 22:46 Dose: 2 mg Piperacillin/Tazobactam/ (Dextrose 3.375 gm/ Premix) 50 mls @ 100 mls/hr IV Q6H [facility] Last Admin: 07/15/16 04:33 Dose: 100 mls/hr Magnesium Sulfate 2 gm/ Premix 50 mls @ 25 mls/hr IV ONETIME ONE Stop: 07/15/16 19:59 Insulin Aspart (Novolog) 0 unit SUBCUT ASDIRECTED [facility] PRN Reason: Protocol Last Admin: 07/14/16 18:11 Dose: 1 unit Insulin Detemir (Levemir) 20 unit SUBCUT BEDTIME [facility] Last Admin: 07/14/16 21:33 Dose: 20 units Magnesium Hydroxide (Milk Of Magnesia) 30 ml PO Q12H PRN PRN Reason: Constipation Magnesium Oxide (Magnesium Oxide) 400 mg PO BID [facility] Mometasone Furoate/Formoterol Fumar (Dulera 200-5 Mcg) 1 puff IH BEDTIME [facility] Last Admin: 07/14/16 22:49 Dose: Not Given Ondansetron HCl (Zofran) 4 mg IV Q4H PRN PRN Reason: Nausea/Vomiting Oxycodone HCl (Oxycodone) 5 mg PO Q4H PRN PRN Reason: Pain (moderate 4-6) Last Admin: 07/15/16 08:46 Dose: 5 mg Polyethylene Glycol (Miralax) 17 gm PO DAILY PRN PRN Reason: Constipation Potassium Chloride (Klor-Con M20) 40 meq PO BIDMEALS [facility] Last Admin: 07/15/16 08:41 Dose: 40 meq Simvastatin (Zocor) 20 mg PO BEDTIME [facility] Last Admin: 07/14/16 21:32 Dose: 20 mg Sodium Chloride (Saline Flush) 10 ml FLUSH ASDIRECTED PRN PRN Reason: Keep Vein Open Discontinued Medications Carvedilol (Coreg) 3.125 mg PO DAILY [facility] Last Admin: 07/14/16 10:02 Dose: 3.125 mg Furosemide (Lasix) 80 mg IVPUSH ONETIME ONE Stop: 07/13/16 10:29 Last Admin: 07/13/16 12:22 Dose: 80 mg Furosemide (Lasix) 80 mg IVPUSH Q12H [facility] Last Admin: 07/14/16 00:39 Dose: Not Given Furosemide (Lasix) 60 mg IVPUSH Q12H [facility] Last Admin: 07/15/16 08:44 Dose: 60 mg Haloperidol Lactate (Haldol) 2 mg IVPUSH ONETIME ONE Stop: 07/14/16 22:14 Last Admin: 07/14/16 22:20 Dose: 2 mg Haloperidol Lactate (Haldol) 2 mg IVPUSH ONETIME ONE Stop: 07/14/16 22:38 Last Admin: 07/14/16 23:32 Dose: 2 mg Haloperidol Lactate (Haldol) 2 mg IVPUSH ONETIME ONE Stop: 07/14/16 23:25 Last Admin: 07/14/16 23:32 Dose: Not Given Ampicillin Sodium/Sulbactam (Sodium 3 gm/ Sodium Chloride) 100 mls @ 200 mls/ hr IV ONETIME ONE Stop: 07/13/16 12:16 Last Admin: 07/13/16 12:20 Dose: 200 mls/hr Magnesium Sulfate 2 gm/ Premix 50 mls @ 25 mls/hr IV ONETIME ONE Stop: 07/15/16 11:29 Last Admin: 07/15/16 10:38 Dose: 25 mls/hr Lorazepam (Ativan) 2 mg IVPUSH ONETIME ONE Stop: 07/15/16 00:00 Last Admin: 07/15/16 00:07 Dose: 2 mg - Exam Quality Assessment: supplemental oxygen, DVT prophylaxis General: sedated Lungs: Clear to auscultation, Normal respiratory effort Cardiovascular: regular rate, regular rhythm Abdomen: bowel sounds present, soft, no tenderness, no distension Extremities: edema Skin: warm, dry, intact - Problem List Review Problem List Initiated/Reviewed/Updated: Yes - My Orders Last 24 Hours: My Active Orders 07/14/16 11:20 Cardiac Monitoring [RC] .As Directed 07/14/16 11:23 Vital Signs [RC] Q4H 07/14/16 21:00 Carvedilol [Coreg] 3.125 mg PO BID 07/15/16 13:15 Furosemide [Lasix] 60 mg IVPUSH Q24H Magnesium Oxide 400 mg PO BID 07/15/16 16:30 GLUCOSE POC LAB TO COLLECT [POC] QIDACANDBED 07/15/16 18:00 Magnesium Sulfate/Water [Magnesium Sulfate 2 GM in Water 50 ML] 2 gm Premix Bag 1 bag IV ONETIME 07/15/16 21:00 GLUCOSE POC LAB TO COLLECT [POC] QIDACANDBED 07/16/16 05:00 BASIC METABOLIC PANEL,BMP [CHEM] Timed CBC WITH AUTO DIFF [HEME] Timed MAGNESIUM [CHEM] Timed 07/16/16 08:00 Echo Comp wo Cont [US] Urgent - Plan Plan:: ASSESSMENT AND PLAN CONGESTIVE HEART FAILURE-on evaluation today is noted to have pulmonary edema which is likely the underlying cause of his increased shortness of breath PND and orthopnea. He does have known COPD and likely has a component of cor pulmonale which is contributing to his marked peripheral edema. He does of increase in creatinine will back off of diuretic therapy and only give once every 24 hours. -IV Lasix 60 mg every 24 hours -2 g sodium diet -Echocardiogram when available on Saturday -Discontinue nonsteroidal medications -Consider addition of IAN inhibitor depending on results of echocardiogram COPD-no evidence of acute exacerbation, he does have a [id number] smoking history. He discontinued smoking approximately 6 years ago. No evidence of underlying respiratory tract infection at the present time -Supplemental oxygen as needed -Nebulized albuterol and duo nebs CELLULITIS LEFT LEG-he has edema in both legs, there are several open areas on each leg. Erythema has improved significantly since admission -Blood culture pending -IV Zosyn, expanded spectrum antibiotic required because of underlying diabetes -Management of peripheral edema as above CHRONIC KIDNEY DISEASE STAGE III-creatinine has increased over the past 24 hours likely secondary to diuretic therapy -Decrease frequency of IV diuretics -Monitor renal function and urine output closely during hospital stay TYPE 2 DIABETES MELLITUS -Hold metformin given decreased renal function and mild lactic acidosis -4 times a day glucometers -Continue usual dose of long-acting insulin -Low-dose sliding slow NovoLog ELEVATED TROPONIN-likely secondary to demand ischemia in the setting of congestive heart failure with respiratory compromise as well as underlying chronic kidney disease LACTIC ACIDOSIS-likely secondary to current respiratory compromise with congestive heart failure and COPD MAINTENANCE ISSUES -DVT prophylaxis; Lovenox 30 mg subcutaneous daily -GI prophylaxis; none indicated -Arceo catheter; not indicated -Nutrition; consistent carb and 2 g sodium diet -Nicotine dependence; not required CODE STATUS-FULL CODE ADMISSION STATUS-patient will be admitted to inpatient status, expect at least a 2 night hospital stay for evaluation and management of problems as outlined above. At the time of this admission I do not reasonably expected evaluation and management of this problem will require more than a 96 hour hospital stay. DISPOSITION-anticipate discharge to home versus longterm PRIMARY CARE PROVIDER-
[2016-07-15] MEDS: Magnesium Oxide 400 MG Tab PO SCH ×2 (14:55→20:35)
[2016-07-15] MEDS: Enoxaparin 30 MG/0.3 ML Syringe SUBCUT SCH (15:05)
[2016-07-15] MEDS: Piperacillin/Tazobactam 2.25 GM in Sodium Chloride 0.9% 50 ML IV SCH (17:37)
[2016-07-15] MEDS: Formoterol/Mometasone 200-5 MCG 8.8 GM Inhaler IH SCH (20:35)
[2016-07-15] MEDS: Simvastatin 20 MG Tab PO SCH (20:36)
[2016-07-15] MEDS: Insulin Aspart 100 Units/ML 3 ML Pen SUBCUT SCH (21:25)
[2016-07-16] MEDS: oxyCODONE 5 MG Tab PO PRN ×4 (00:46→23:48)
[2016-07-16] MEDS: Piperacillin/Tazobactam 2.25 GM in Sodium Chloride 0.9% 50 ML IV SCH ×2 (00:47→04:45)
[2016-07-16] MEDS: Potassium Chloride 20 MEQ Tab.ER PO SCH ×2 (08:20→17:44)
[2016-07-16] MEDS: Magnesium Oxide 400 MG Tab PO SCH ×2 (08:20→21:04)
[2016-07-16] MEDS: Carvedilol 3.125 MG Tab PO SCH ×2 (08:23→21:04)
[2016-07-16] MEDS ORDERED: Furosemide 40 MG/4 ML VIAL IVPUSH SCH (09:00)
[2016-07-16] MEDS: Insulin Aspart 100 Units/ML 3 ML Pen SUBCUT SCH ×3 (11:25→21:30)
[2016-07-16] MEDS: Piperacillin/Tazobactam/Dext 2.25 GM in Premix Bag 1 BAG IV SCH ×3 (11:30→22:33)
--- NOTE | 2016-07-16 13:06 | PCM.PN ---
- General Info Date of Service: 07/16/16 Functional Status: Reports: tolerating diet - Review of Systems General: Denies: fever Cardiovascular: Reports: edema Systems Review Comment:: no acute events overnight. No significant difficulties with leg pain and edema has been improving. He does notice some weeping from his legs, especially the left leg. He is not having any fevers. Cultures have all been negative so far. She remains very weak and requires the assist of 2 to get up and out of bed. Kidney function stable today compared to yesterday. Still requiring some supplemental oxygen. - Patient Data Vitals - most recent: Last Vital Signs Temp 36.3 C 07/16/16 09:37 Pulse 87 07/16/16 09:37 Resp 20 07/16/16 09:37 BP 121/75 07/16/16 09:37 Pulse Ox 92 L 07/16/16 12:44 Weight - most recent: 102.421 kg I&O - last 24 hours: Intake & Output 07/15/16 07/16/16 07/16/16 22:59 06:59 14:59 Intake Total 229 537 5699 Output Total 949 502 7224 Balance 470 90 110 Lab Results last 24 hrs: Laboratory Results - last 24 hr 07/16/16 07/16/16 Range/Units 05:50 05:50 WBC 15.3 H (4.5-11.0) K/uL RBC 4.42 (4.30-5.90) M/uL Hgb 12.6 (12.0-15.0) g/dL Hct 41.5 (40.0-54.0) % MCV 94 (80-98) fL MCH 29 (27-31) pg MCHC 30 L (32-36) % Plt Count 232 (150-400) K/uL Neut % (Auto) 80 H (36-66) % Lymph % (Auto) 6 L (24-44) % Crisp % (Auto) 11 H (2-6) % Eos % (Auto) 3 (2-4) % Baso % (Auto) 0 (0-1) % Sodium 142 (140-148) mmol/L Potassium 4.8 (3.6-5.2) mmol/L Chloride 104 (100-108) mmol/L Carbon Dioxide 31 (21-32) mmol/L Anion Gap 6.6 (5.0-14.0) mmol/L BUN 60 H (7-18) mg/dL Creatinine 2.4 H (0.8-1.3) mg/dL Est Cr Clr Drug Dosing 28.23 mL/min Estimated GFR (MDRD) 27 L (>60) Glucose 106 (74-106) mg/dL Calcium 8.9 (8.5-10.1) mg/dL Magnesium 2.5 H (1.8-2.4) mg/dL Med Orders - Current: Current Medications Acetaminophen (Tylenol) 650 mg PO Q4H PRN PRN Reason: Pain (Mild 1-3)/fever Last Admin: 07/15/16 20:29 Dose: 650 mg Albuterol (Ventolin Hfa) 0 gm INH QID PRN PRN Reason: Shortness of Breath Albuterol (Proventil Neb Soln) 2.5 mg NEB Q4H PRN PRN Reason: Shortness Of Breath/wheezing Carvedilol (Coreg) 3.125 mg PO BID [facility] Last Admin: 07/16/16 08:23 Dose: 3.125 mg Dextrose (Glutose 15) 15 gm PO ASDIRECTED PRN PRN Reason: Hypoglycemia Dextrose/Water (Dextrose 50% In Water) 50 ml IV ASDIRECTED PRN PRN Reason: Hypoglycemia Docusate Sodium (Colace) 100 mg PO BID PRN PRN Reason: Constipation Enoxaparin Sodium (Lovenox) 30 mg SUBCUT Q24H [facility] Last Admin: 07/15/16 15:05 Dose: 30 mg Furosemide (Lasix) 60 mg IVPUSH DAILY [facility] Last Admin: 07/16/16 08:21 Dose: 60 mg Haloperidol Lactate (Haldol) 0 mg IVPUSH Q2H PRN PRN Reason: Agitation Last Admin: 07/14/16 22:46 Dose: 2 mg Piperacillin/Tazobactam/ (Dextrose 2.25 gm/ Premix) 50 mls @ 100 mls/hr IV Q6H [facility] Last Admin: 07/16/16 11:30 Dose: 100 mls/hr Insulin Aspart (Novolog) 0 unit SUBCUT ASDIRECTED [facility] PRN Reason: Protocol Last Admin: 07/16/16 11:25 Dose: 2 unit Insulin Detemir (Levemir) 20 unit SUBCUT BEDTIME [facility] Last Admin: 07/14/16 21:33 Dose: 20 units Magnesium Hydroxide (Milk Of Magnesia) 30 ml PO Q12H PRN PRN Reason: Constipation Magnesium Oxide (Magnesium Oxide) 400 mg PO BID [facility] Last Admin: 07/16/16 08:20 Dose: 400 mg Mometasone Furoate/Formoterol Fumar (Dulera 200-5 Mcg) 1 puff IH BEDTIME [facility] Last Admin: 07/15/16 20:35 Dose: 1 puff Ondansetron HCl (Zofran) 4 mg IV Q4H PRN PRN Reason: Nausea/Vomiting Oxycodone HCl (Oxycodone) 5 mg PO Q4H PRN PRN Reason: Pain (moderate 4-6) Last Admin: 07/16/16 09:07 Dose: 5 mg Polyethylene Glycol (Miralax) 17 gm PO DAILY PRN PRN Reason: Constipation Potassium Chloride (Klor-Con M20) 40 meq PO BIDMEALS [facility] Last Admin: 07/16/16 08:20 Dose: 40 meq Simvastatin (Zocor) 20 mg PO BEDTIME [facility] Last Admin: 07/15/16 20:36 Dose: 20 mg Sodium Chloride (Saline Flush) 10 ml FLUSH ASDIRECTED PRN PRN Reason: Keep Vein Open Discontinued Medications Albuterol/Ipratropium (Duoneb 3.0-0.5 Mg/3 Ml) 3 ml NEB QIDRT [facility] Last Admin: 07/15/16 14:38 Dose: 3 ml Carvedilol (Coreg) 3.125 mg PO DAILY [facility] Last Admin: 07/14/16 10:02 Dose: 3.125 mg Furosemide (Lasix) 80 mg IVPUSH ONETIME ONE Stop: 07/13/16 10:29 Last Admin: 07/13/16 12:22 Dose: 80 mg Furosemide (Lasix) 80 mg IVPUSH Q12H [facility] Last Admin: 07/14/16 00:39 Dose: Not Given Furosemide (Lasix) 60 mg IVPUSH Q12H [facility] Last Admin: 07/15/16 08:44 Dose: 60 mg Haloperidol Lactate (Haldol) 2 mg IVPUSH ONETIME ONE Stop: 07/14/16 22:14 Last Admin: 07/14/16 22:20 Dose: 2 mg Haloperidol Lactate (Haldol) 2 mg IVPUSH ONETIME ONE Stop: 07/14/16 22:38 Last Admin: 07/14/16 23:32 Dose: 2 mg Haloperidol Lactate (Haldol) 2 mg IVPUSH ONETIME ONE Stop: 07/14/16 23:25 Last Admin: 07/14/16 23:32 Dose: Not Given Ampicillin Sodium/Sulbactam (Sodium 3 gm/ Sodium Chloride) 100 mls @ 200 mls/ hr IV ONETIME ONE Stop: 07/13/16 12:16 Last Admin: 07/13/16 12:20 Dose: 200 mls/hr Piperacillin/Tazobactam/ (Dextrose 3.375 gm/ Premix) 50 mls @ 100 mls/hr IV Q6H [facility] Last Admin: 07/15/16 13:21 Dose: 100 mls/hr Magnesium Sulfate 2 gm/ Premix 50 mls @ 25 mls/hr IV ONETIME ONE Stop: 07/15/16 11:29 Last Admin: 07/15/16 10:38 Dose: 25 mls/hr Magnesium Sulfate 2 gm/ Premix 50 mls @ 25 mls/hr IV ONETIME ONE Stop: 07/15/16 19:59 Last Admin: 07/15/16 18:26 Dose: 25 mls/hr Piperacillin Sod/Tazobactam (Sod 2.25 gm/ Sodium Chloride) 50 mls @ 100 mls/hr IV Q6H [facility] Last Admin: 07/16/16 04:45 Dose: 100 mls/hr Lorazepam (Ativan) 2 mg IVPUSH ONETIME ONE Stop: 07/15/16 00:00 Last Admin: 07/15/16 00:07 Dose: 2 mg - Exam Quality Assessment: supplemental oxygen General: alert, oriented, cooperative, no acute distress Neck: supple Lungs: Normal respiratory effort, Wheezing (mild diffuse expiratory wheezing). No: Rales Cardiovascular: regular rate, regular rhythm, murmurs Abdomen: soft, no tenderness, no distension Extremities: no cyanosis, edema (pitting edema of both legs to the waist left greater than right.) Skin: warm, dry Wound/Incisions: No: drainage (posterior distal left leg with several areas that appear to be pressure-like ulcers. No evidence for erythema or drainage) Psy/Mental Status: alert, normal affect - Problem List Review Problem List Initiated/Reviewed/Updated: Yes - My Orders Last 24 Hours: My Active Orders 07/16/16 13:02 Communication Order [RC] ROUTINE Discontinue Telemetry Monitoring [Cardiac Monitoring Discontinue] [RC] Click to Edit IAN Bandage [Elastic Wrap] [OM.PC] Routine 07/16/16 13:03 Wound Care [RC] DAILY 07/17/16 05:00 BASIC METABOLIC PANEL,BMP [CHEM] Timed CBC W/O DIFF,HEMOGRAM [HEME] Timed (1) - Plan Plan:: ASSESSMENT AND PLAN CONGESTIVE HEART FAILURE - recent evidence for pulmonary edema, some wheezing today which could be secondary to this.echocardiogram has been completed but is pending. Kidney function has declined with more aggressive diuresis. Left ventricular function is unknown at this time. Cor pulmonale certainly could be considered versus tricuspid regurgitation or possibly both. -IV furosemide 60 mg every 24 hours -2 g sodium diet -followup Echocardiogram -Discontinue nonsteroidal medications -Consider addition of IAN inhibitor depending on results of echocardiogram COPD - no evidence of acute exacerbation, he does have a [id number] smoking history. some wheezing but I think it's more fluid related. -Supplemental oxygen as needed -Nebulized albuterol and duo nebs -consider steroids CELLULITIS LEFT LEG - he has edema in both legs, there are several open areas on each leg. Erythema has improved significantly and swelling has been improving. Several stasis ulcers on both legs, left posterior lower leg has been most and the most impressive. -Blood culture pending -continue PIP/Tazo -followup cultures -Management of peripheral edema as above -outpatient referral to Dr. Bazan Acute on chronic kidney disease - creatinine level has been rising with more aggressive diuresis but has been stable for the past 24 hours. -Decrease frequency of IV diuretics -Monitor renal function and urine output closely during hospital stay TYPE 2 DIABETES MELLITUS - sugars have been acceptable -Hold metformin given decreased renal function and mild lactic acidosis -4 times a day glucometers -Continue usual dose of long-acting insulin -Low-dose sliding slow NovoLog ELEVATED TROPONIN - likely secondary to demand ischemia in the setting of congestive heart failure with respiratory compromise as well as underlying chronic kidney disease. Level has been trending down. LACTIC ACIDOSIS - likely secondary to current respiratory compromise with congestive heart failure and COPD. this has resolved. MAINTENANCE ISSUES -DVT prophylaxis; Lovenox 30 mg subcutaneous daily -GI prophylaxis; none indicated -Arceo catheter; not indicated -Nutrition; consistent carb and 2 g sodium diet ADMISSION STATUS-patient will be admitted to inpatient status, expect at least a 2 night hospital stay for evaluation and management of problems as outlined above. At the time of this admission I do not reasonably expected evaluation and management of this problem will require more than a 96 hour hospital stay. DISPOSITION - anticipate discharge to detention Mingo Ga M.D.
[2016-07-16] MEDS: Enoxaparin 30 MG/0.3 ML Syringe SUBCUT SCH (15:14)
[2016-07-16] MEDS ORDERED: Insulin Detemir 100 Units/ML 3 ML Pen SUBCUT ONE (21:00)
[2016-07-16] MEDS: Formoterol/Mometasone 200-5 MCG 8.8 GM Inhaler IH SCH (21:04)
[2016-07-16] MEDS: Simvastatin 20 MG Tab PO SCH (21:05)
[2016-07-17] MEDS: oxyCODONE 5 MG Tab PO PRN ×3 (03:35→20:18)
[2016-07-17] MEDS: Piperacillin/Tazobactam/Dext 2.25 GM in Premix Bag 1 BAG IV SCH ×2 (05:00→10:55)
[2016-07-17] MEDS: Magnesium Hydroxide 400 MG/5 ML Susp 30 ML Cup PO PRN (06:00)
[2016-07-17] MEDS: Acetaminophen 325 MG Tab PO PRN (06:17)
[2016-07-17] MEDS: Carvedilol 3.125 MG Tab PO SCH ×2 (09:02→20:20)
[2016-07-17] MEDS: Magnesium Oxide 400 MG Tab PO SCH ×2 (10:58→20:21)
[2016-07-17] MEDS: Potassium Chloride 20 MEQ Tab.ER PO SCH (11:00)
[2016-07-17] MEDS: Insulin Aspart 100 Units/ML 3 ML Pen SUBCUT SCH ×3 (12:04→21:22)
--- NOTE | 2016-07-17 16:00 | PCM.PN ---
- General Info Date of Service: 07/17/16 Functional Status: Reports: pain controlled, tolerating diet - Review of Systems General: Reports: Weakness Musculoskeletal: Reports: leg pain Systems Review Comment:: no acute events overnight. Mild disorientation today but no behavior issues and patient is pleasant and cooperative. Mild left lower leg pain. Ongoing lower extremity edema. Creatinine level has risen slightly since yesterday but urine output has been tolerable. No complaints of shortness of breath today. Remains very weak and requires the assist of 2 to get into and out of bed. - Patient Data Vitals - most recent: Last Vital Signs Temp 35.6 C 07/17/16 15:26 Pulse 86 07/17/16 15:26 Resp 18 07/17/16 15:26 BP 121/73 07/17/16 15:26 Pulse Ox 95 07/17/16 15:26 Weight - most recent: 104.689 kg I&O - last 24 hours: Intake & Output 07/17/16 07/17/16 07/17/16 06:59 14:59 22:59 Intake Total 530 650 480 Output Total 975 525 Balance 530 -325 -45 Lab Results last 24 hrs: Laboratory Results - last 24 hr 07/17/16 07/17/16 Range/Units 05:00 05:00 WBC 15.4 H (4.5-11.0) K/uL RBC 4.46 (4.30-5.90) M/uL Hgb 12.3 (12.0-15.0) g/dL Hct 42.0 (40.0-54.0) % MCV 94 (80-98) fL MCH 28 (27-31) pg MCHC 29 L (32-36) % Plt Count 212 (150-400) K/uL Sodium 140 (140-148) mmol/L Potassium 5.3 H (3.6-5.2) mmol/L Chloride 102 (100-108) mmol/L Carbon Dioxide 30 (21-32) mmol/L Anion Gap 13.3 (5.0-14.0) mmol/L BUN 69 H (7-18) mg/dL Creatinine 2.7 H (0.8-1.3) mg/dL Est Cr Clr Drug Dosing 25.01 mL/min Estimated GFR (MDRD) 23 L (>60) Glucose 124 H (74-106) mg/dL Calcium 9.0 (8.5-10.1) mg/dL Med Orders - Current: Current Medications Acetaminophen (Tylenol) 650 mg PO Q4H PRN PRN Reason: Pain (Mild 1-3)/fever Last Admin: 07/17/16 06:17 Dose: 650 mg Albuterol (Ventolin Hfa) 0 gm INH QID PRN PRN Reason: Shortness of Breath Albuterol (Proventil Neb Soln) 2.5 mg NEB Q4H PRN PRN Reason: Shortness Of Breath/wheezing Carvedilol (Coreg) 3.125 mg PO BID [facility] Last Admin: 07/17/16 09:02 Dose: 3.125 mg Dextrose (Glutose 15) 15 gm PO ASDIRECTED PRN PRN Reason: Hypoglycemia Dextrose/Water (Dextrose 50% In Water) 50 ml IV ASDIRECTED PRN PRN Reason: Hypoglycemia Docusate Sodium (Colace) 100 mg PO BID PRN PRN Reason: Constipation Enoxaparin Sodium (Lovenox) 30 mg SUBCUT Q24H [facility] Last Admin: 07/16/16 15:14 Dose: 30 mg Haloperidol Lactate (Haldol) 0 mg IVPUSH Q2H PRN PRN Reason: Agitation Last Admin: 07/14/16 22:46 Dose: 2 mg Piperacillin/Tazobactam/ (Dextrose 2.25 gm/ Premix) 50 mls @ 100 mls/hr IV Q6H [facility] Last Admin: 07/17/16 10:55 Dose: 100 mls/hr Insulin Aspart (Novolog) 0 unit SUBCUT ASDIRECTED [facility] PRN Reason: Protocol Last Admin: 07/17/16 12:04 Dose: 1 unit Insulin Detemir (Levemir) 20 unit SUBCUT BEDTIME [facility] Last Admin: 07/14/16 21:33 Dose: 20 units Magnesium Hydroxide (Milk Of Magnesia) 30 ml PO Q12H PRN PRN Reason: Constipation Last Admin: 07/17/16 06:00 Dose: 30 ml Magnesium Oxide (Magnesium Oxide) 400 mg PO BID [facility] Last Admin: 07/17/16 10:58 Dose: 400 mg Mometasone Furoate/Formoterol Fumar (Dulera 200-5 Mcg) 1 puff IH BEDTIME [facility] Last Admin: 07/16/16 21:04 Dose: 1 puff Ondansetron HCl (Zofran) 4 mg IV Q4H PRN PRN Reason: Nausea/Vomiting Oxycodone HCl (Oxycodone) 5 mg PO Q4H PRN PRN Reason: Pain (moderate 4-6) Last Admin: 07/17/16 09:00 Dose: 5 mg Polyethylene Glycol (Miralax) 17 gm PO DAILY PRN PRN Reason: Constipation Potassium Chloride (Klor-Con M20) 40 meq PO BIDMEALS [facility] Last Admin: 07/17/16 11:00 Dose: Not Given Simvastatin (Zocor) 20 mg PO BEDTIME [facility] Last Admin: 07/16/16 21:05 Dose: 20 mg Sodium Chloride (Saline Flush) 10 ml FLUSH ASDIRECTED PRN PRN Reason: Keep Vein Open Discontinued Medications Albuterol/Ipratropium (Duoneb 3.0-0.5 Mg/3 Ml) 3 ml NEB QIDRT [facility] Last Admin: 07/15/16 14:38 Dose: 3 ml Carvedilol (Coreg) 3.125 mg PO DAILY [facility] Last Admin: 07/14/16 10:02 Dose: 3.125 mg Furosemide (Lasix) 80 mg IVPUSH ONETIME ONE Stop: 07/13/16 10:29 Last Admin: 07/13/16 12:22 Dose: 80 mg Furosemide (Lasix) 80 mg IVPUSH Q12H [facility] Last Admin: 07/14/16 00:39 Dose: Not Given Furosemide (Lasix) 60 mg IVPUSH Q12H [facility] Last Admin: 07/15/16 08:44 Dose: 60 mg Furosemide (Lasix) 60 mg IVPUSH DAILY [facility] Last Admin: 07/16/16 08:21 Dose: 60 mg Furosemide 20 mg/ Furosemide (40 mg) 60 mg IVPUSH DAILY [facility] Last Admin: 07/17/16 09:03 Dose: 60 mg Haloperidol Lactate (Haldol) 2 mg IVPUSH ONETIME ONE Stop: 07/14/16 22:14 Last Admin: 07/14/16 22:20 Dose: 2 mg Haloperidol Lactate (Haldol) 2 mg IVPUSH ONETIME ONE Stop: 07/14/16 22:38 Last Admin: 07/14/16 23:32 Dose: 2 mg Haloperidol Lactate (Haldol) 2 mg IVPUSH ONETIME ONE Stop: 07/14/16 23:25 Last Admin: 07/14/16 23:32 Dose: Not Given Ampicillin Sodium/Sulbactam (Sodium 3 gm/ Sodium Chloride) 100 mls @ 200 mls/ hr IV ONETIME ONE Stop: 07/13/16 12:16 Last Admin: 07/13/16 12:20 Dose: 200 mls/hr Piperacillin/Tazobactam/ (Dextrose 3.375 gm/ Premix) 50 mls @ 100 mls/hr IV Q6H [facility] Last Admin: 07/15/16 13:21 Dose: 100 mls/hr Magnesium Sulfate 2 gm/ Premix 50 mls @ 25 mls/hr IV ONETIME ONE Stop: 07/15/16 11:29 Last Admin: 07/15/16 10:38 Dose: 25 mls/hr Magnesium Sulfate 2 gm/ Premix 50 mls @ 25 mls/hr IV ONETIME ONE Stop: 07/15/16 19:59 Last Admin: 07/15/16 18:26 Dose: 25 mls/hr Piperacillin Sod/Tazobactam (Sod 2.25 gm/ Sodium Chloride) 50 mls @ 100 mls/hr IV Q6H [facility] Last Admin: 07/16/16 04:45 Dose: 100 mls/hr Insulin Detemir (Levemir) 10 unit SUBCUT ONETIME ONE Stop: 07/16/16 21:01 Last Admin: 07/16/16 21:30 Dose: 10 units Lorazepam (Ativan) 2 mg IVPUSH ONETIME ONE Stop: 07/15/16 00:00 Last Admin: 07/15/16 00:07 Dose: 2 mg - Exam Quality Assessment: No: supplemental oxygen General: alert, oriented, cooperative, no acute distress Neck: supple Lungs: Normal respiratory effort, Wheezing Cardiovascular: Regular Rate, Regular Rhythm Abdomen: soft, no distension Extremities: edema (pitting edema to the waist bilaterally) Skin: warm, dry Wound/Incisions: other (multiple stasis ulcers on both legs with the most impressive on the left lower leg posteriorly near the ankle) Psy/Mental Status: alert, normal affect - Problem List Review Problem List Initiated/Reviewed/Updated: Yes - Plan Plan:: ASSESSMENT AND PLAN CONGESTIVE HEART FAILURE - recent evidence for pulmonary edema, some wheezing today which could be secondary to this.echocardiogram has been completed but is pending. Kidney function has declined further despite less intense diuresis. Left ventricular function is unknown at this time. Cor pulmonale certainly could be considered versus tricuspid regurgitation or possibly both. -hold diuresis -2 g sodium diet -followup Echocardiogram -Discontinue nonsteroidal medications -Consider addition of IAN inhibitor depending on results of echocardiogram and kidney function COPD - no evidence of acute exacerbation, he does have a [id number] smoking history. some wheezing but I think it's more fluid related. -Supplemental oxygen as needed -Nebulized albuterol and duo nebs -consider steroids CELLULITIS LEFT LEG - he has edema in both legs, there are several open stasis ulcers on each leg. Erythema has improved significantly and swelling has been improving. Several stasis ulcers on both legs, left posterior lower leg has been most and the most impressive. -Blood culture pending -continue PIP/Tazo -followup cultures -Management of peripheral edema as above -inpatient versus outpatient referral to Dr. Bazan Acute on chronic kidney disease - creatinine level has risen again despite less intense diuresis. Planning to hold diuresis altogether tomorrow. -hold diuretics tomorrow -Monitor renal function and urine output closely during hospital stay TYPE 2 DIABETES MELLITUS - sugars have been acceptable and long-acting insulin has been on hold. -Hold metformin given decreased renal function and mild lactic acidosis -4 times a day glucometers -Continue usual dose of long-acting insulin -Low-dose sliding slow NovoLog ELEVATED TROPONIN - likely secondary to demand ischemia in the setting of congestive heart failure with respiratory compromise as well as underlying chronic kidney disease. Level has been trending down. MAINTENANCE ISSUES -DVT prophylaxis; Lovenox 30 mg subcutaneous daily -GI prophylaxis; none indicated -Arceo catheter; not indicated -Nutrition; consistent carb and 2 g sodium diet DISPOSITION - anticipate discharge to skilled nursing after the hospital stay M[place] Ga M.D.
[2016-07-17] MEDS: Enoxaparin 30 MG/0.3 ML Syringe SUBCUT SCH (16:20)
[2016-07-17] MEDS ORDERED: cefTRIAXone 2 GM in Sodium Chloride 0.9% 50 ML IV SCH (18:00)
[2016-07-17] MEDS: Simvastatin 20 MG Tab PO SCH (20:21)
[2016-07-17] MEDS: Formoterol/Mometasone 200-5 MCG 8.8 GM Inhaler IH SCH (20:21)
[2016-07-18] MEDS: oxyCODONE 5 MG Tab PO PRN ×2 (00:41→19:17)
[2016-07-18] MEDS: Haloperidol Lactate 5 MG/ML SDV IVPUSH PRN ×2 (00:52→19:17)
[2016-07-18] MEDS: Carvedilol 3.125 MG Tab PO SCH ×2 (09:59→20:58)
[2016-07-18] MEDS: Magnesium Oxide 400 MG Tab PO SCH ×2 (10:00→20:57)
--- NOTE | 2016-07-18 10:29 | PCM.PN ---
- General Info Date of Service: 07/18/16 Functional Status: Reports: pain controlled, tolerating diet. Denies: ambulating - Review of Systems General: Reports: Weakness Pulmonary: Reports: shortness of breath Cardiovascular: Reports: Edema Systems Review Comment:: some difficulty with mild agitation overnight. He did require a single dose of Haldol. He says that he feels better today. Still has some mild left lower leg pain but no right leg pain. Thinks his breathing is stable to slightly improved. Not exactly sure where he is today. Lower extremity edema slightly improved. Tolerating his IAN wraps on the lower legs. Creatinine slightly better today than yesterday. - Patient Data Vitals - most recent: Last Vital Signs Temp 36.6 C 07/18/16 07:28 Pulse 88 07/18/16 09:59 Resp 16 07/18/16 07:28 BP 133/78 07/18/16 09:59 Pulse Ox 93 L 07/18/16 07:28 Weight - most recent: 104.054 kg I&O - last 24 hours: Intake & Output 07/17/16 07/18/16 07/18/16 22:59 06:59 14:59 Intake Total 1652 480 Output Total 975 300 Balance 677 180 Lab Results last 24 hrs: Laboratory Results - last 24 hr 07/18/16 07/18/16 Range/Units 04:20 05:00 WBC 14.8 H (4.5-11.0) K/uL RBC 4.63 (4.30-5.90) M/uL Hgb 13.1 (12.0-15.0) g/dL Hct 42.9 (40.0-54.0) % MCV 93 (80-98) fL MCH 28 (27-31) pg MCHC 31 L (32-36) % Plt Count 246 (150-400) K/uL Sodium 138 L (140-148) mmol/L Potassium 4.6 (3.6-5.2) mmol/L Chloride 98 L (100-108) mmol/L Carbon Dioxide 31 (21-32) mmol/L Anion Gap 13.6 (5.0-14.0) mmol/L BUN 67 H (7-18) mg/dL Creatinine 2.5 H (0.8-1.3) mg/dL Est Cr Clr Drug Dosing 27.01 mL/min Estimated GFR (MDRD) 26 L (>60) Glucose 144 H (74-106) mg/dL Calcium 9.1 (8.5-10.1) mg/dL Med Orders - Current: Current Medications Acetaminophen (Tylenol) 650 mg PO Q4H PRN PRN Reason: Pain (Mild 1-3)/fever Last Admin: 07/17/16 06:17 Dose: 650 mg Albuterol (Ventolin Hfa) 0 gm INH QID PRN PRN Reason: Shortness of Breath Albuterol (Proventil Neb Soln) 2.5 mg NEB Q4H PRN PRN Reason: Shortness Of Breath/wheezing Carvedilol (Coreg) 3.125 mg PO BID [facility] Last Admin: 07/18/16 09:59 Dose: 3.125 mg Cefdinir (Omnicef) 300 mg PO BID [facility] Dextrose (Glutose 15) 15 gm PO ASDIRECTED PRN PRN Reason: Hypoglycemia Dextrose/Water (Dextrose 50% In Water) 50 ml IV ASDIRECTED PRN PRN Reason: Hypoglycemia Docusate Sodium (Colace) 100 mg PO BID PRN PRN Reason: Constipation Enoxaparin Sodium (Lovenox) 30 mg SUBCUT Q24H [facility] Last Admin: 07/17/16 16:20 Dose: 30 mg Furosemide (Lasix) 40 mg PO BIDDIURETIC [facility] Haloperidol Lactate (Haldol) 0 mg IVPUSH Q2H PRN PRN Reason: Agitation Last Admin: 07/18/16 00:52 Dose: 5 mg Insulin Aspart (Novolog) 0 unit SUBCUT ASDIRECTED [facility] PRN Reason: Protocol Last Admin: 07/17/16 21:22 Dose: 4 unit Magnesium Hydroxide (Milk Of Magnesia) 30 ml PO Q12H PRN PRN Reason: Constipation Last Admin: 07/17/16 06:00 Dose: 30 ml Magnesium Oxide (Magnesium Oxide) 400 mg PO BID [facility] Last Admin: 07/18/16 10:00 Dose: 400 mg Mometasone Furoate/Formoterol Fumar (Dulera 200-5 Mcg) 1 puff IH BEDTIME [facility] Last Admin: 07/17/16 20:21 Dose: 1 puff Ondansetron HCl (Zofran) 4 mg IV Q4H PRN PRN Reason: Nausea/Vomiting Oxycodone HCl (Oxycodone) 5 mg PO Q4H PRN PRN Reason: Pain (moderate 4-6) Last Admin: 07/18/16 00:41 Dose: 5 mg Polyethylene Glycol (Miralax) 17 gm PO DAILY PRN PRN Reason: Constipation Simvastatin (Zocor) 20 mg PO BEDTIME [facility] Last Admin: 07/17/16 20:21 Dose: 20 mg Sodium Chloride (Saline Flush) 10 ml FLUSH ASDIRECTED PRN PRN Reason: Keep Vein Open Discontinued Medications Albuterol/Ipratropium (Duoneb 3.0-0.5 Mg/3 Ml) 3 ml NEB QIDRT [facility] Last Admin: 07/15/16 14:38 Dose: 3 ml Carvedilol (Coreg) 3.125 mg PO DAILY [facility] Last Admin: 07/14/16 10:02 Dose: 3.125 mg Furosemide (Lasix) 80 mg IVPUSH ONETIME ONE Stop: 07/13/16 10:29 Last Admin: 07/13/16 12:22 Dose: 80 mg Furosemide (Lasix) 80 mg IVPUSH Q12H [facility] Last Admin: 07/14/16 00:39 Dose: Not Given Furosemide (Lasix) 60 mg IVPUSH Q12H [facility] Last Admin: 07/15/16 08:44 Dose: 60 mg Furosemide (Lasix) 60 mg IVPUSH DAILY [facility] Last Admin: 07/16/16 08:21 Dose: 60 mg Furosemide 20 mg/ Furosemide (40 mg) 60 mg IVPUSH DAILY [facility] Last Admin: 07/17/16 09:03 Dose: 60 mg Haloperidol Lactate (Haldol) 2 mg IVPUSH ONETIME ONE Stop: 07/14/16 22:14 Last Admin: 07/14/16 22:20 Dose: 2 mg Haloperidol Lactate (Haldol) 2 mg IVPUSH ONETIME ONE Stop: 07/14/16 22:38 Last Admin: 07/14/16 23:32 Dose: 2 mg Haloperidol Lactate (Haldol) 2 mg IVPUSH ONETIME ONE Stop: 07/14/16 23:25 Last Admin: 07/14/16 23:32 Dose: Not Given Ampicillin Sodium/Sulbactam (Sodium 3 gm/ Sodium Chloride) 100 mls @ 200 mls/ hr IV ONETIME ONE Stop: 07/13/16 12:16 Last Admin: 07/13/16 12:20 Dose: 200 mls/hr Piperacillin/Tazobactam/ (Dextrose 3.375 gm/ Premix) 50 mls @ 100 mls/hr IV Q6H [facility] Last Admin: 07/15/16 13:21 Dose: 100 mls/hr Magnesium Sulfate 2 gm/ Premix 50 mls @ 25 mls/hr IV ONETIME ONE Stop: 07/15/16 11:29 Last Admin: 07/15/16 10:38 Dose: 25 mls/hr Magnesium Sulfate 2 gm/ Premix 50 mls @ 25 mls/hr IV ONETIME ONE Stop: 07/15/16 19:59 Last Admin: 07/15/16 18:26 Dose: 25 mls/hr Piperacillin Sod/Tazobactam (Sod 2.25 gm/ Sodium Chloride) 50 mls @ 100 mls/hr IV Q6H [facility] Last Admin: 07/16/16 04:45 Dose: 100 mls/hr Piperacillin/Tazobactam/ (Dextrose 2.25 gm/ Premix) 50 mls @ 100 mls/hr IV Q6H [facility] Last Admin: 07/17/16 10:55 Dose: 100 mls/hr Ceftriaxone Sodium 2 gm/ (Sodium Chloride) 50 mls @ 100 mls/hr IV Q24H [facility] Last Admin: 07/17/16 17:11 Dose: 100 mls/hr Insulin Detemir (Levemir) 20 unit SUBCUT BEDTIME [facility] Last Admin: 07/14/16 21:33 Dose: 20 units Insulin Detemir (Levemir) 10 unit SUBCUT ONETIME ONE Stop: 07/16/16 21:01 Last Admin: 07/16/16 21:30 Dose: 10 units Lorazepam (Ativan) 2 mg IVPUSH ONETIME ONE Stop: 07/15/16 00:00 Last Admin: 07/15/16 00:07 Dose: 2 mg Potassium Chloride (Klor-Con M20) 40 meq PO BIDMEALS [facility] Last Admin: 07/17/16 11:00 Dose: Not Given - Exam Quality Assessment: supplemental oxygen General: alert, cooperative, no acute distress. No: oriented Neck: supple, JVD Lungs: Clear to auscultation, Normal respiratory effort Cardiovascular: Regular Rate, Regular Rhythm, Murmurs Abdomen: soft, no tenderness, no distension Extremities: no cyanosis, edema (pitting edema to the waist bilaterally ), other (both lower legs wrapped with ian from foot to knee) Skin: warm, dry Psy/Mental Status: alert, normal affect - Problem List & Annotations (1) Acute systolic congestive heart failure, NYHA class 3 SNOMED Code(s): 696698448, 580106812, 297961457 Code(s): I50.21 - ACUTE SYSTOLIC (CONGESTIVE) HEART FAILURE Status: Acute Current Visit: Yes (2) Acute on chronic renal failure SNOMED Code(s): 665447129 Code(s): N17.9 - ACUTE KIDNEY FAILURE, UNSPECIFIED; N18.9 - CHRONIC KIDNEY DISEASE, UNSPECIFIED Status: Acute Current Visit: Yes (3) Cellulitis of leg, left SNOMED Code(s): 807106344 Code(s): L03.116 - CELLULITIS OF LEFT LOWER LIMB Status: Acute Current Visit: Yes - Problem List Review Problem List Initiated/Reviewed/Updated: Yes - My Orders Last 24 Hours: My Active Orders 07/18/16 14:00 Furosemide [Lasix] 40 mg PO BIDDIURETIC 07/18/16 21:00 Cefdinir [Omnicef] 300 mg PO BID 07/19/16 05:00 BASIC METABOLIC PANEL,BMP [CHEM] Timed CBC W/O DIFF,HEMOGRAM [HEME] Timed (1) - Plan Plan:: ASSESSMENT AND PLAN ACUTE SYSTOLIC CONGESTIVE HEART FAILURE - echocardiogram showed evidence for volume overload and significantly decreased ejection fraction at 25-30%. He had been responding somewhat to diuresis but kidney function declined and was put on hold. Examination today still consistent with significant volume overload and JVD. Planning to reinitiate diuresis despite decreased kidney function as discussed below. -restart oral diuresis -continue medical management -2 g sodium diet -Discontinue nonsteroidal medications -Consider addition of IAN inhibitor depending when kidney function stabilizes after diuresis COPD - no evidence of acute exacerbation, he does have a [id number] smoking history. no wheezing today. -Supplemental oxygen as needed -Nebulized albuterol and duo nebs -consider steroids CELLULITIS LEFT LEG - he has edema in both legs, there are several open stasis ulcers on each leg. Erythema has has resolved. IV has come out so we will transition to oral medications. -Blood culture pending -start cefdinir -followup cultures -Management of peripheral edema as above -inpatient versus outpatient referral to Dr. Bazan Acute on chronic kidney disease - creatinine level has improved slightly since yesterday. This almost has more of an interstitial nephritis picture rather than ATN, penicillin antibiotic suspected as culprit. -restart diuretics this afternoon -Penicillin has been discontinued -Monitor renal function and urine output closely during hospital stay TYPE 2 DIABETES MELLITUS - sugars have been acceptable and long-acting insulin has been on hold. -Hold metformin given decreased renal function and mild lactic acidosis -4 times a day glucometers -hold long-acting insulin -Low-dose sliding slow NovoLog MAINTENANCE ISSUES -DVT prophylaxis; Lovenox 30 mg subcutaneous daily -GI prophylaxis; none indicated -Arceo catheter; not indicated -Nutrition; consistent carb and 2 g sodium diet DISPOSITION - anticipate discharge to [facility] after the hospital stay Mingo Ga M.D.
[2016-07-18] MEDS: Insulin Aspart 100 Units/ML 3 ML Pen SUBCUT SCH ×3 (11:48→21:01)
[2016-07-18] MEDS: Furosemide 40 MG Tab PO SCH (13:22)
[2016-07-18] MEDS: Enoxaparin 30 MG/0.3 ML Syringe SUBCUT SCH (15:44)
[2016-07-18] MEDS ORDERED: Haloperidol Lactate 5 MG/ML SDV IM ONE (19:23)
[2016-07-18] MEDS ORDERED: LORazepam 2 MG/ML MDV IM PRN (19:31)
--- NOTE | 2016-07-18 19:31 | PCM.SN ---
- Free Text/Narrative Note: time; 19:25 2 [facility]; Mr. Schulz is agitated. requesting Haldol IM a; agitation p:order Haldol 5mg im prn agitation, if not successful, may use Ativan 2mg IM every 2 hours prn agitation
[2016-07-18] MEDS: Formoterol/Mometasone 200-5 MCG 8.8 GM Inhaler IH SCH (20:57)
[2016-07-18] MEDS: Simvastatin 20 MG Tab PO SCH (20:59)
[2016-07-18] MEDS: Cefdinir 300 MG Cap PO SCH (20:59)
[2016-07-19] MEDS: oxyCODONE 5 MG Tab PO PRN ×3 (00:32→14:54)
[2016-07-19] MEDS: Furosemide 40 MG Tab PO SCH ×2 (07:30→14:54)
[2016-07-19] MEDS: Carvedilol 3.125 MG Tab PO SCH ×2 (09:08→21:13)
[2016-07-19] MEDS: Magnesium Oxide 400 MG Tab PO SCH ×2 (09:08→21:12)
[2016-07-19] MEDS: Cefdinir 300 MG Cap PO SCH ×2 (09:08→21:12)
--- NOTE | 2016-07-19 12:42 | PCM.PN ---
- General Info Date of Service: 07/19/16 Functional Status: Reports: pain controlled, tolerating diet - Review of Systems General: Reports: Weakness Pulmonary: Reports: shortness of breath Cardiovascular: Reports: Edema Systems Review Comment:: mild agitation overnight but no acute events. Kidney function continues to improve. Blood sugars have been good while long-acting insulin remains on hold. Lower extremity edema seems better today even with minimally intense diuresis yesterday. Still short of breath with activity. Very weak with transfers. Mild confusion but he does seem a little better today. - Patient Data Vitals - most recent: Last Vital Signs Temp 35.8 C 07/19/16 07:12 Pulse 85 07/19/16 09:08 Resp 18 07/19/16 07:12 BP 123/65 07/19/16 09:08 Pulse Ox 94 L 07/19/16 07:12 Weight - most recent: 105.9 kg I&O - last 24 hours: Intake & Output 07/18/16 07/19/16 07/19/16 22:59 06:59 14:59 Intake Total 480 200 Output Total 150 575 200 Balance 330 -375 -200 Lab Results last 24 hrs: Laboratory Results - last 24 hr 07/19/16 07/19/16 Range/Units 05:00 05:00 WBC 13.6 H (4.5-11.0) K/uL RBC 4.50 (4.30-5.90) M/uL Hgb 12.5 (12.0-15.0) g/dL Hct 41.4 (40.0-54.0) % MCV 92 (80-98) fL MCH 28 (27-31) pg MCHC 30 L (32-36) % Plt Count 248 (150-400) K/uL Sodium 139 L (140-148) mmol/L Potassium 4.4 (3.6-5.2) mmol/L Chloride 101 (100-108) mmol/L Carbon Dioxide 30 (21-32) mmol/L Anion Gap 12.4 (5.0-14.0) mmol/L BUN 63 H (7-18) mg/dL Creatinine 2.2 H (0.8-1.3) mg/dL Est Cr Clr Drug Dosing 30.69 mL/min Estimated GFR (MDRD) 30 L (>60) Glucose 138 H (74-106) mg/dL Calcium 8.9 (8.5-10.1) mg/dL Med Orders - Current: Current Medications Acetaminophen (Tylenol) 650 mg PO Q4H PRN PRN Reason: Pain (Mild 1-3)/fever Last Admin: 07/17/16 06:17 Dose: 650 mg Albuterol (Ventolin Hfa) 0 gm INH QID PRN PRN Reason: Shortness of Breath Albuterol (Proventil Neb Soln) 2.5 mg NEB Q4H PRN PRN Reason: Shortness Of Breath/wheezing Carvedilol (Coreg) 3.[address] [facility] Last Admin: 07/19/16 09:08 Dose: 3.125 mg Cefdinir (Omnicef) [address] [facility] Last Admin: 07/19/16 09:08 Dose: 300 mg Dextrose (Glutose 15) 15 gm PO ASDIRECTED PRN PRN Reason: Hypoglycemia Dextrose/Water (Dextrose 50% In Water) 50 ml IV ASDIRECTED PRN PRN Reason: Hypoglycemia Docusate Sodium (Colace) 100 mg PO BID PRN PRN Reason: Constipation Enoxaparin Sodium (Lovenox) [address] [facility] Last Admin: 07/18/16 15:44 Dose: 30 mg Furosemide (Lasix) [address] [facility] Last Admin: 07/19/16 07:30 Dose: 40 mg Haloperidol Lactate (Haldol) 0 mg IVPUSH Q2H PRN PRN Reason: Agitation Last Admin: 07/18/16 00:52 Dose: 5 mg Insulin Aspart (Novolog) [address] [facility] PRN Reason: Protocol Last Admin: 07/18/16 21:01 Dose: 3 unit Lorazepam (Ativan) 2 mg IM Q2H PRN PRN Reason: Agitation Magnesium Hydroxide (Milk Of Magnesia) 30 ml PO Q12H PRN PRN Reason: Constipation Last Admin: 07/17/16 06:00 Dose: 30 ml Magnesium Oxide (Magnesium Oxide) [address] [facility] Last Admin: 07/19/16 09:08 Dose: 400 mg Mometasone Furoate/Formoterol Fumar (Dulera 200-5 Mcg) [address] [facility] Last Admin: 07/18/16 20:57 Dose: 1 puff Ondansetron HCl (Zofran) 4 mg IV Q4H PRN PRN Reason: Nausea/Vomiting Oxycodone HCl (Oxycodone) 5 mg PO Q4H PRN PRN Reason: Pain (moderate 4-6) Last Admin: 07/19/16 09:07 Dose: 5 mg Polyethylene Glycol (Miralax) 17 gm PO DAILY PRN PRN Reason: Constipation Simvastatin (Zocor) [address] [facility] Last Admin: 07/18/16 20:59 Dose: 20 mg Sodium Chloride (Saline Flush) 10 ml FLUSH ASDIRECTED PRN PRN Reason: Keep Vein Open Discontinued Medications Albuterol/Ipratropium (Duoneb 3.0-0.5 Mg/3 Ml) [address] [facility] Last Admin: 07/15/16 14:38 Dose: 3 ml Carvedilol (Coreg) 3.[address] [facility] Last Admin: 07/14/16 10:02 Dose: 3.125 mg Furosemide (Lasix) 80 mg IVPUSH ONETIME ONE Stop: 07/13/16 10:29 Last Admin: 07/13/16 12:22 Dose: 80 mg Furosemide (Lasix) [address] [facility] Last Admin: 07/14/16 00:39 Dose: Not Given Furosemide (Lasix) [address] [facility] Last Admin: 07/15/16 08:44 Dose: 60 mg Furosemide (Lasix) [address] [facility] Last Admin: 07/16/16 08:21 Dose: 60 mg Furosemide 20 mg/ Furosemide (40 mg) [address] [facility] Last Admin: 07/17/16 09:03 Dose: 60 mg Haloperidol Lactate (Haldol) 2 mg IVPUSH ONETIME ONE Stop: 07/14/16 22:14 Last Admin: 07/14/16 22:20 Dose: 2 mg Haloperidol Lactate (Haldol) 2 mg IVPUSH ONETIME ONE Stop: 07/14/16 22:38 Last Admin: 07/14/16 23:32 Dose: 2 mg Haloperidol Lactate (Haldol) 2 mg IVPUSH ONETIME ONE Stop: 07/14/16 23:25 Last Admin: 07/14/16 23:32 Dose: Not Given Haloperidol Lactate (Haldol) 5 mg IM ONETIME ONE Stop: 07/18/16 19:24 Last Admin: 07/18/16 23:36 Dose: Not Given Ampicillin Sodium/Sulbactam (Sodium 3 gm/ Sodium Chloride) 100 mls @ 200 mls/ hr IV ONETIME ONE Stop: 07/13/16 12:16 Last Admin: 07/13/16 12:20 Dose: 200 mls/hr Piperacillin/Tazobactam/ (Dextrose 3.375 gm/ Premix) 50 mls @ 100 mls/hr IV Q6H [facility] Last Admin: 07/15/16 13:21 Dose: 100 mls/hr Magnesium Sulfate 2 gm/ Premix 50 mls @ 25 mls/hr IV ONETIME ONE Stop: 07/15/16 11:29 Last Admin: 07/15/16 10:38 Dose: 25 mls/hr Magnesium Sulfate 2 gm/ Premix 50 mls @ 25 mls/hr IV ONETIME ONE Stop: 07/15/16 19:59 Last Admin: 07/15/16 18:26 Dose: 25 mls/hr Piperacillin Sod/Tazobactam (Sod 2.25 gm/ Sodium Chloride) 50 mls @ 100 mls/hr IV Q6H [facility] Last Admin: 07/16/16 04:45 Dose: 100 mls/hr Piperacillin/Tazobactam/ (Dextrose 2.25 gm/ Premix) 50 mls @ 100 mls/hr IV Q6H [facility] Last Admin: 07/17/16 10:55 Dose: 100 mls/hr Ceftriaxone Sodium 2 gm/ (Sodium Chloride) 50 mls @ 100 mls/hr IV Q24H [facility] Last Admin: 07/17/16 17:11 Dose: 100 mls/hr Insulin Detemir (Levemir) [address] [facility] Last Admin: 07/14/16 21:33 Dose: 20 units Insulin Detemir (Levemir) 10 unit SUBCUT ONETIME ONE Stop: 07/16/16 21:01 Last Admin: 07/16/16 21:30 Dose: 10 units Lorazepam (Ativan) 2 mg IVPUSH ONETIME ONE Stop: 07/15/16 00:00 Last Admin: 07/15/16 00:07 Dose: 2 mg Potassium Chloride (Klor-Con M20) [address] [facility] Last Admin: 07/17/16 11:00 Dose: Not Given - Exam Quality Assessment: No: supplemental oxygen General: alert, cooperative, no acute distress. No: oriented Neck: supple Lungs: Clear to auscultation, Normal respiratory effort, Wheezing (very mild end exp wheezing right upper chest) Cardiovascular: Regular Rate, Regular Rhythm, Murmurs, Gallops Abdomen: soft, no distension Extremities: no cyanosis, edema (pitting edema from foot to the waist bilaterally ) Skin: warm, dry Psy/Mental Status: alert, normal affect - Problem List & Annotations (1) Acute systolic congestive heart failure, NYHA class 3 SNOMED Code(s): 909789986, 087046518, 986110698 Code(s): I50.21 - ACUTE SYSTOLIC (CONGESTIVE) HEART FAILURE Status: Acute Current Visit: Yes (2) Acute on chronic renal failure SNOMED Code(s): 543316526 Code(s): N17.9 - ACUTE KIDNEY FAILURE, UNSPECIFIED; N18.9 - CHRONIC KIDNEY DISEASE, UNSPECIFIED Status: Acute Current Visit: Yes (3) Cellulitis of leg, left SNOMED Code(s): 167503879 Code(s): L03.116 - CELLULITIS OF LEFT LOWER LIMB Status: Acute Current Visit: Yes - Problem List Review Problem List Initiated/Reviewed/Updated: Yes - My Orders Last 24 Hours: My Active Orders 07/18/16 14:00 Furosemide [Lasix] 40 mg PO BIDDIURETIC 07/18/16 21:00 Cefdinir [Omnicef] 300 mg PO BID 07/20/16 05:00 BASIC METABOLIC PANEL,BMP [CHEM] Timed CBC W/O DIFF,HEMOGRAM [HEME] Timed (1) - Plan Plan:: ASSESSMENT AND PLAN ACUTE SYSTOLIC CONGESTIVE HEART FAILURE - echocardiogram showed evidence for volume overload and significantly decreased ejection fraction at 25-30%. volume exam seems a little better today but still significant JVD and edema. I' m afraid to push his diuresis to hard with his recent kidney issues as discussed below. Seems to be doing well just with oral furosemide at this time. No longer needing oxygen during the day. -continue oral furosemide -continue medical management -2 g sodium diet -Discontinue nonsteroidal medications -Consider addition of IAN inhibitor depending when kidney function stabilizes after diuresis COPD - no evidence of acute exacerbation, he does have a [id number] smoking history. no wheezing today. -Supplemental oxygen as needed -Nebulized albuterol and duo nebs -consider steroids CELLULITIS LEFT LEG - he has edema in both legs, there are several open stasis ulcers on each leg. Erythema has has resolved. IV has come out so we will transition to oral medications. -continue cefdinir -followup cultures -Management of peripheral edema as above -outpatient followup with Dr. Bazan Acute on chronic kidney disease - creatinine level has improved further today, suspect interstitial nephritis with penicillin antibiotic. -continue diuretics -Penicillin has been discontinued -Monitor renal function and urine output closely during hospital stay TYPE 2 DIABETES MELLITUS - sugars have been acceptable and long-acting insulin has been on hold. -Hold metformin given decreased renal function -4 times a day glucometers -hold long-acting insulin -Low-dose sliding slow NovoLog MAINTENANCE ISSUES -DVT prophylaxis; Lovenox 30 mg subcutaneous daily -GI prophylaxis; none indicated -Arceo catheter; not indicated -Nutrition; consistent carb and 2 g sodium diet DISPOSITION - anticipate discharge to [facility] after the hospital stay, should be ready tomorrow Mingo Ga M.D.
[2016-07-19] MEDS: Insulin Aspart 100 Units/ML 3 ML Pen SUBCUT SCH ×3 (13:01→21:14)
--- NOTE | 2016-07-19 14:20 | US ---
Ultrasound arterial study. Findings: Right lower extremity: Monophasic waveform throughout the entire right lower extremity. Moderate to large amount of plaque at the right common femoral artery and right superficial femoral artery proxi sharmaine. Profundus femoris artery demonstrates velocity up to 205 cm/s which can indicate a stenosis. No other elevated velocity within the right lower extremity. Left lower extremity: Large amount of plaque at the left common femoral artery. Left common femoral artery velocity is 247 cm/s. Monophasic waveform throughout the left lower extremity. Increased [place] at the mid left superficial femoral artery at 210 cm/s. Left posterior tibial artery is patent. No visualized flow within a left peroneal artery. Left anterior tibialis artery is patent. Left [place] pedal artery is patent. Impression: 1. Monophasic waveform bilaterally within the lower extremities indicate a stenosis more proximally within the aorta or branch vessels. 2. Increased velocity left common femoral artery and left mid superficial femoral artery can indicat e stenosis. 3. No flow evident within the left peroneal artery. This could indicate occlusion.
[2016-07-19] MEDS: Magnesium Hydroxide 400 MG/5 ML Susp 30 ML Cup PO PRN (14:54)
[2016-07-19] MEDS: Enoxaparin 30 MG/0.3 ML Syringe SUBCUT SCH (17:00)
[2016-07-19] MEDS: Formoterol/Mometasone 200-5 MCG 8.8 GM Inhaler IH SCH (21:12)
[2016-07-19] MEDS: Simvastatin 20 MG Tab PO SCH (21:12)
[2016-07-20] MEDS: oxyCODONE 5 MG Tab PO PRN ×3 (00:24→09:03)
[2016-07-20 08:18] VITALS: BP 124/73
[2016-07-20] MEDS: Magnesium Oxide 400 MG Tab PO SCH (08:46)
[2016-07-20] MEDS: Cefdinir 300 MG Cap PO SCH (08:46)
[2016-07-20] MEDS: Carvedilol 3.125 MG Tab PO SCH (08:46)
[2016-07-20] MEDS: Furosemide 40 MG Tab PO SCH (08:46)
[2016-07-20] MEDS: Insulin Aspart 100 Units/ML 3 ML Pen SUBCUT SCH (08:49)
--- NOTE | 2016-07-20 10:33 | PCM.DCSUM1 ---
Discharge Summary - Hospital Course Brief History: 70 -year-old male with history of coronary artery disease, congestive heart failure and insulin-dependent diabetes who presented with several weeks of progressive shortness of breath and orthopnea and was admitted for management of congestive heart failure exacerbation as well as left leg cellulitis - Discharge Data Discharge Date: 07/20/16 Discharge Disposition: DC/Tfer to SNF 03 Condition: Fair - Discharge Diagnosis/Problem(s) (1) Acute systolic congestive heart failure, NYHA class 3 SNOMED Code(s): 397173657, 270295295, 664303509 ICD Code: I50.21 - ACUTE SYSTOLIC (CONGESTIVE) HEART FAILURE Status: Acute Current Visit: Yes (2) Acute on chronic renal failure SNOMED Code(s): 001332688 ICD Code: N17.9 - ACUTE KIDNEY FAILURE, UNSPECIFIED; N18.9 - CHRONIC KIDNEY DISEASE, UNSPECIFIED Status: Acute Current Visit: Yes (3) Cellulitis of leg, left SNOMED Code(s): 717802522 ICD Code: L03.116 - CELLULITIS OF LEFT LOWER LIMB Status: Acute Current Visit: Yes (4) Delirium SNOMED Code(s): 8508841 ICD Code: R41.0 - DISORIENTATION, UNSPECIFIED Status: Acute Current Visit : Yes (5) Generalized weakness SNOMED Code(s): 09382223 ICD Code: R53.1 - WEAKNESS Status: Acute Current Visit: Yes (6) Peripheral vascular disease of lower extremity with ulceration SNOMED Code(s): 293142560 ICD Code: I73.9 - PERIPHERAL VASCULAR DISEASE, UNSPECIFIED; L97.909 - NON- PRS CHRONIC ULC UNSP PRT OF UNSP LOW LEG W UNSP SEVERITY Status: Acute Current Visit: Yes - Patient Summary/Data Consults: Consultations 07/13/16 13:30 PT Evaluation and Treatment [CONS] Routine Please Evaluate and Treat. PT Reason for Consult: Strengthening This query below is only for informational purposes and is not editable. 07/19/16 16:13 Consult to Physician [CONS] Routine Consulting Provider: Renato Bazan Call Completed to Consulting Physician: Yes Reason for Consult: Left lower tremor the stasis ulcers Person Notified: RW Date Notified: 07/19/16 Special Instructions: Dr. Bazan has evaluated the patient today Recommended Follow-up Testing/Procedures: Followup with Dr. Bazan for wound care services in one week Rob will need a referral to interventional cardiology to discuss treatment of peripheral arterial disease once his congestive heart failure and chronic kidney disease have completely stabilized. Hospital Course: Rob presented to the emergency room with progressive lower extremity edema and shortness of breath. Workup in the emergency room suggested subacute exacerbation of his chronic congestive heart failure with reduced systolic function as well as left lower extremity cellulitis and a mildly elevated troponin level. There was no evidence for acute myocardial infarction and the elevated troponin was thought secondary to demand ischemia with his heart failure complicated by chronic kidney disease. He was started on broad- spectrum IV antibiotics for the cellulitis and provided IV diuresis. His respiratory status did start to improve with the diuresis and his cellulitis improved with the antibiotics. Unfortunately his kidney disease did not tolerate the diuresis and/or the antibiotics and he had a slow rise in his creatinine following admission. Symptomatically and on examination he showed steady improvement in his congestive heart failure with less respiratory compromise and less supplemental oxygen requirements. His lower tremor the edema has been improving and we have also utilized Yong wraps on his lower legs to aid in mechanical compression. We did have to hold his diuretics for today with rising creatinine though I suspect the worsening renal function was probably related to penicillin antibiotics rather than his diuresis. Medical management for his systolic congestive heart failure has included a beta jeison and diuretics. We have not initiated an YONG inhibitor at this time because of hyperkalemia noted to during hospital stay as well as his renal issues. We did complete an echocardiogram during the early part of the hospital stay which showed an ejection fraction of about 25% with some minor valvular abnormalities including tricuspid and mitral regurgitation. He does have some aortic sclerosis but no significant stenosis. At the time of discharge he is on furosemide twice daily and has been having a slow but steady improvement in his lower extremity edema and respiratory difficulty. these may need some titration of the road but he seems very stable on the current regimen. regarding his renal failure, this did progress during hospital stay but I suspect it was related to the penicillin antibiotic and has improved as we have discontinued that and transition to a cephalosporin antibiotic. He has been making good urine and tolerating his current diuretic regimen and is kidney function has at his recent baseline. Regarding his diabetes, we have held his long-acting insulin as well as his metformin because of low blood sugars and elevated creatinine respectively. We have utilized a sliding scale insulin with good control utilizing approximately 5-6 units of insulin per day. We have not restarted his long-acting insulin with such a small insulin requirement. As his kidney function improves he may need to be started on a small dose of a long-acting insulin. We have not restarted his metformin with creatinine elevated above 2 at the time of discharge. At the time of admission he was noted to have redness and swelling of his left lower extremity. We treated this like cellulitis with broad-spectrum antibiotics. Dr. Bazan was consult for additional management assistance with stasis ulcers noted on both legs but more impressively on the left. Dr. Bazan I requested peripheral vascular studies to be performed and he has evidence for severe peripheral arterial disease with essentially no blood flow below the knee on the left as well as monophasic flow in the proximal lower extremities. He will need followup with the interventional cardiology folks after the time of discharge once his conditions have stabilized. Hopefully the diuresis and improving lower extremity edema will also aid in healing. Current recommendations for wound care includes wet to dry dressings of the left lower extremity once daily and as needed. Also noted during the hospital stay were several episodes of delirium. This happened mostly at night if he did require Haldol in a couple of occasions. These have dissipated throughout the hospital stay. No behavior issues in the last 2 nights. There is no evidence for ongoing infection or new infection to suggest a cause. 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 we have not initiated any medications to manage this because he has been stable for the past 48 hours. At the time of discharge the plan is for [facility]. He has impressive generalized weakness because of deconditioning in the setting of congestive heart failure. He will need assistance with his lower extremity wound care as well as a regular followup with his volume status and potentially adjustments in his diuretics. He is not safe for outpatient management at this time with his generalized weakness. - Patient Instructions Diet: Heart Healthy Diet Activity: As Tolerated Showering/Bathing: May Shower Notify Provider of: Fever, Increased Pain, Swelling and Redness, Drainage, Nausea and/or Vomiting Other/Special Instructions: 1. You were in the hospital for management of cellulitis on your left lower leg as well as decompensated systolic congestive heart failure and acute kidney injury. The infection has been improving with antibiotic therapy and you would benefit from 4-1/2 additional days of antibiotic therapy. We have been making some improvements with your congestive heart failure but have been limited by the decreased kidney function. I have increased your diuretic therapy to twice daily with good response. 2. During the hospital stay we tested the blood flow to your legs with ultrasound. There is evidence for significant blockage in the arteries in both of your legs, left greater than right. You will need outpatient followup with interventional cardiology to see if we can improve blood flow to your legs. 3. Regarding the wound care of her left lower leg, Dr. Bazan has recommended daily wet-to- dry dressing changes. We will continue to use the YONG wraps from your ankle to your thigh to help with lower extremity edema. 4. We has stopped your long- acting insulin because of low blood sugars. We will manage your blood sugars utilizing a low-dose sliding scale until a better trend can be determined. The sliding scale is as follows: If glucose is -. <100 = no insulin. 100-149 = 1 unit. 150-199 = 2 units. 200-249 = 3 units. 250-299 = 4 units. 300-349 = 5 units. 350-399 = 6 units. >400 call MD. 5. Your current CODE STATUS is full code. We did discuss procedures such as CPR and mechanical ventilation and you were agreeable to having both of those done at this time. 6. Referral to physical and occupational therapy. 7. Accuchecks 3 times daily with meals and at bedtime - diagnosis diabetes. 8. Repeat BMP next week to followup potassium and kidney function. 9. Followup with Dr. Bazan in the wound care clinic in one week - Discharge Plan Prescriptions/Med Rec: Acetaminophen [Tylenol] 650 mg PO Q4H PRN #100 tablet PRN Reason: Pain/Fever Albuterol [IJD: Albuterol] 2.5 mg NEB QID #120 nebule Cefdinir [IJD: Cefdinir] 300 mg PO BID #9 capsule Furosemide [Lasix] 40 mg PO BIDDIURETIC #60 tablet Insulin Aspart [NovoLOG] 1 - 5 unit SUBCUT ASDIRECTED #1 pen atorvaSTATin [Lipitor] 40 mg PO BEDTIME #30 tablet Home Medications: Home Meds Albuterol [Proair HFA] 2 puff INH QID PRN 07/13/16 [History] Carvedilol 3.125 mg PO BID 07/13/16 [History] Fluticasone/Salmeterol [Advair 250-50 Diskus] 1 puff INH BEDTIME 07/13/16 [ History] Acetaminophen [Tylenol] 650 mg PO Q4H PRN #100 tablet 07/20/16 [Rx] Albuterol [IJD: Albuterol] 2.5 mg NEB QID #120 nebule 07/20/16 [Rx] Cefdinir [IJD: Cefdinir] 300 mg PO BID #9 capsule 07/20/16 [Rx] Furosemide [Lasix] 40 mg PO BIDDIURETIC #60 tablet 07/20/16 [Rx] Insulin Aspart [NovoLOG] 1 - 5 unit SUBCUT ASDIRECTED #1 pen 07/20/16 [Rx] atorvaSTATin [Lipitor] 40 mg PO BEDTIME #30 tablet 07/20/16 [Rx] Patient Handouts: Peripheral Vascular Disease, Cellulitis, Adult Referrals: Ag Boucher MD [Physician] - (f/u one week - f/u hospital stay for CHF, CKD ) Renato Bazan MD [Physician] - (f/u one week - wound care f/u, consult in the hospital ) - Discharge Summary/Plan Comment DC Time >30 min.: Yes (60 - new NH discharge) - Patient Data Vitals - Most Recent: Last Vital Signs Temp 36.5 C 07/20/16 08:13 Pulse 86 07/20/16 08:13 Resp 18 07/20/16 08:13 BP 124/73 07/20/16 08:13 Pulse Ox 85 L 07/20/16 08:13 Weight - Most Recent: 105.9 kg I&O - Last 24 hours: Intake & Output 07/19/16 07/20/16 07/20/16 22:59 06:59 14:59 Intake Total 712 1440 960 Output Total 900 175 Balance -188 1265 960 Lab Results - Last 24 hrs: Laboratory Results - last 24 hr 07/20/16 07/20/16 Range/Units 04:33 04:33 WBC 13.2 H (4.5-11.0) K/uL RBC 4.47 (4.30-5.90) M/uL Hgb 12.4 (12.0-15.0) g/dL Hct 41.5 (40.0-54.0) % MCV 93 (80-98) fL MCH 28 (27-31) pg MCHC 30 L (32-36) % Plt Count 253 (150-400) K/uL Sodium 138 L (140-148) mmol/L Potassium 4.6 (3.6-5.2) mmol/L Chloride 100 (100-108) mmol/L Carbon Dioxide 30 (21-32) mmol/L Anion Gap 12.6 (5.0-14.0) mmol/L BUN 62 H (7-18) mg/dL Creatinine 2.2 H (0.8-1.3) mg/dL Est Cr Clr Drug Dosing 30.69 mL/min Estimated GFR (MDRD) 30 L (>60) Glucose 145 H (74-106) mg/dL Calcium 9.0 (8.5-10.1) mg/dL Med Orders - Current: Current Medications Acetaminophen (Tylenol) 650 mg PO Q4H PRN PRN Reason: Pain (Mild 1-3)/fever Last Admin: 07/17/16 06:17 Dose: 650 mg Albuterol (Ventolin Hfa) 0 gm INH QID PRN PRN Reason: Shortness of Breath Albuterol (Proventil Neb Soln) 2.5 mg NEB Q4H PRN PRN Reason: Shortness Of Breath/wheezing Carvedilol (Coreg) 3.125 mg PO BID [facility] Last Admin: 07/20/16 08:46 Dose: 3.125 mg Cefdinir (Omnicef) 300 mg PO BID [facility] Last Admin: 07/20/16 08:46 Dose: 300 mg Dextrose (Glutose 15) 15 gm PO ASDIRECTED PRN PRN Reason: Hypoglycemia Dextrose/Water (Dextrose 50% In Water) 50 ml IV ASDIRECTED PRN PRN Reason: Hypoglycemia Docusate Sodium (Colace) 100 mg PO BID PRN PRN Reason: Constipation Enoxaparin Sodium (Lovenox) 30 mg SUBCUT Q24H [facility] Last Admin: 07/19/16 17:00 Dose: 30 mg Furosemide (Lasix) 40 mg PO BIDDIURETIC [facility] Last Admin: 07/20/16 08:46 Dose: 40 mg Haloperidol Lactate (Haldol) 0 mg IVPUSH Q2H PRN PRN Reason: Agitation Last Admin: 07/18/16 00:52 Dose: 5 mg Insulin Aspart (Novolog) 0 unit SUBCUT ASDIRECTED [facility] PRN Reason: Protocol Last Admin: 07/20/16 08:49 Dose: 1 unit Lorazepam (Ativan) 2 mg IM Q2H PRN PRN Reason: Agitation Magnesium Hydroxide (Milk Of Magnesia) 30 ml PO Q12H PRN PRN Reason: Constipation Last Admin: 07/19/16 14:54 Dose: 30 ml Magnesium Oxide (Magnesium Oxide) 400 mg PO BID [facility] Last Admin: 07/20/16 08:46 Dose: 400 mg Mometasone Furoate/Formoterol Fumar (Dulera 200-5 Mcg) 1 puff IH BEDTIME [facility] Last Admin: 07/19/16 21:12 Dose: 1 puff Ondansetron HCl (Zofran) 4 mg IV Q4H PRN PRN Reason: Nausea/Vomiting Oxycodone HCl (Oxycodone) 5 mg PO Q4H PRN PRN Reason: Pain (moderate 4-6) Last Admin: 07/20/16 09:03 Dose: 5 mg Polyethylene Glycol (Miralax) 17 gm PO DAILY PRN PRN Reason: Constipation Simvastatin (Zocor) 20 mg PO BEDTIME [facility] Last Admin: 07/19/16 21:12 Dose: 20 mg Sodium Chloride (Saline Flush) 10 ml FLUSH ASDIRECTED PRN PRN Reason: Keep Vein Open Discontinued Medications Albuterol/Ipratropium (Duoneb 3.0-0.5 Mg/3 Ml) 3 ml NEB QIDRT [facility] Last Admin: 07/15/16 14:38 Dose: 3 ml Carvedilol (Coreg) 3.125 mg PO DAILY [facility] Last Admin: 07/14/16 10:02 Dose: 3.125 mg Furosemide (Lasix) 80 mg IVPUSH ONETIME ONE Stop: 07/13/16 10:29 Last Admin: 07/13/16 12:22 Dose: 80 mg Furosemide (Lasix) 80 mg IVPUSH Q12H [facility] Last Admin: 07/14/16 00:39 Dose: Not Given Furosemide (Lasix) 60 mg IVPUSH Q12H [facility] Last Admin: 07/15/16 08:44 Dose: 60 mg Furosemide (Lasix) 60 mg IVPUSH DAILY [facility] Last Admin: 07/16/16 08:21 Dose: 60 mg Furosemide 20 mg/ Furosemide (40 mg) 60 mg IVPUSH DAILY [facility] Last Admin: 07/17/16 09:03 Dose: 60 mg Haloperidol Lactate (Haldol) 2 mg IVPUSH ONETIME ONE Stop: 07/14/16 22:14 Last Admin: 07/14/16 22:20 Dose: 2 mg Haloperidol Lactate (Haldol) 2 mg IVPUSH ONETIME ONE Stop: 07/14/16 22:38 Last Admin: 07/14/16 23:32 Dose: 2 mg Haloperidol Lactate (Haldol) 2 mg IVPUSH ONETIME ONE Stop: 07/14/16 23:25 Last Admin: 07/14/16 23:32 Dose: Not Given Haloperidol Lactate (Haldol) 5 mg IM ONETIME ONE Stop: 07/18/16 19:24 Last Admin: 07/18/16 23:36 Dose: Not Given Ampicillin Sodium/Sulbactam (Sodium 3 gm/ Sodium Chloride) 100 mls @ 200 mls/ hr IV ONETIME ONE Stop: 07/13/16 12:16 Last Admin: 07/13/16 12:20 Dose: 200 mls/hr Piperacillin/Tazobactam/ (Dextrose 3.375 gm/ Premix) 50 mls @ 100 mls/hr IV Q6H [facility] Last Admin: 07/15/16 13:21 Dose: 100 mls/hr Magnesium Sulfate 2 gm/ Premix 50 mls @ 25 mls/hr IV ONETIME ONE Stop: 07/15/16 11:29 Last Admin: 07/15/16 10:38 Dose: 25 mls/hr Magnesium Sulfate 2 gm/ Premix 50 mls @ 25 mls/hr IV ONETIME ONE Stop: 07/15/16 19:59 Last Admin: 07/15/16 18:26 Dose: 25 mls/hr Piperacillin Sod/Tazobactam (Sod 2.25 gm/ Sodium Chloride) 50 mls @ 100 mls/hr IV Q6H [facility] Last Admin: 07/16/16 04:45 Dose: 100 mls/hr Piperacillin/Tazobactam/ (Dextrose 2.25 gm/ Premix) 50 mls @ 100 mls/hr IV Q6H [facility] Last Admin: 07/17/16 10:55 Dose: 100 mls/hr Ceftriaxone Sodium 2 gm/ (Sodium Chloride) 50 mls @ 100 mls/hr IV Q24H [facility] Last Admin: 07/17/16 17:11 Dose: 100 mls/hr Insulin Detemir (Levemir) 20 unit SUBCUT BEDTIME [facility] Last Admin: 07/14/16 21:33 Dose: 20 units Insulin Detemir (Levemir) 10 unit SUBCUT ONETIME ONE Stop: 07/16/16 21:01 Last Admin: 07/16/16 21:30 Dose: 10 units Lorazepam (Ativan) 2 mg IVPUSH ONETIME ONE Stop: 07/15/16 00:00 Last Admin: 07/15/16 00:07 Dose: 2 mg Potassium Chloride (Klor-Con M20) 40 meq PO BIDMEALS [facility] Last Admin: 07/17/16 11:00 Dose: Not Given *Q Meaningful Use (DIS) - VTE *Q VTE Criteria *Q: VTE Pharmacological Contraindications *Q: Renal Impairment - Stroke *Q Stroke Criteria *Q: - AMI *Q AMI Criteria *Q:
--- NOTE | 2016-07-20 12:11 | US ---
Ultrasound venous reflux study. Findings: Right lower extremity: No DVT within the deep venous system on the right. Right popliteal vein demon strates venous reflux for duration of 1 second. Right greater saphenous vein demonstrates venous ref lux at the junction for duration of 1 second and within the proximal calf for duration of 1.5 second s. No evidence for venous reflux within the right lesser saphenous vein. Left lower extremity: no DVT within the deep venous system. Venous reflux within the left greater sa phenous vein at the distal thigh for duration of 0.6 seconds and within the proximal calf for durati on of 1.1 seconds. Venous reflux with the left lesser saphenous vein for duration of 0.6 seconds. Impression: 1. Venous reflux in the bilateral greater saphenous veins and left lesser saphenous vein.
--- NOTE | 2016-07-23 11:51 | CONS ---
DATE OF SERVICE: 07/20/2016 REFERRING PHYSICIAN: CONSULTING PHYSICIAN: Renato Bazan MD REASON FOR CONSULTATION: Evaluation of lower extremity ulcerations. HISTORY OF PRESENT ILLNESS: This is a 70-year-old male, who was seen in the emergency room due to shortness of breath related to congestive heart failure associated with pulmonary edema. This patient also had a significant ulcerations on his lower legs, this was most likely related to pressure ulcerations. The patient is a poor historian with respect to this. Therefore, this history and physical is collected from a combination of the chart, the patient and other locations along with other locations such as the hospitalist service. PAST MEDICAL HISTORY: Hypertension, type 2 diabetes, COPD, fractures, cataracts, hypercholesterolemia and hypertension. PAST SURGICAL HISTORY: Appendectomy. SOCIAL HISTORY: He is a former smoker. FAMILY HISTORY: Noncontributory. REVIEW OF SYSTEMS: GENERAL: The patient feels weak. HEENT: No symptoms. PULMONARY: Shortness of breath as expected with his current status. CARDIOVASCULAR: Again, shortness of breath, without any evidence of chest pain. GASTROINTESTINAL: No abnormalities. GENITOURINARY: No abnormalities. MUSCULOSKELETAL: Leg weakness. SKIN: Please see history of present illness. PSYCHIATRIC: No symptoms. NEUROLOGICAL: No symptoms the remainder. The remainder of review of systems reviewed and is negative. PHYSICAL EXAMINATION: VITAL SIGNS: Temperature 97.7, blood pressure 124/73, pulse 86, respirations 18, 85% on 2 L. HEENT: Pupils are equal. NECK: Supple. CARDIOVASCULAR: Regular rhythm and rate. RESPIRATORY: Very poor respiration effort bilaterally. ABDOMEN: Bowel sounds positive. EXTREMITIES: Full range of motion. SKIN: Shows multiple next ulcers associated with lower extremity edema. These appear to be pressure ulcer in nature combined with venous stasis status. LABORATORY RESULTS: [place] [address] with a normal hemoglobin and a poor creatinine 2.2. IMAGING: The patient was scheduled for ultrasound of his greater saphenous vein, which showed significant reflux in bilateral greater saphenous veins and left lesser saphenous vein. The patient also underwent ABIs with associated ultrasound, which shows essentially multilevel vascular issues. ASSESSMENT AND PLAN: Peripheral vascular disease with mixed ulcers. These ulcers are essentially a venous ulcer that has been compounded by poor arterial flow and further compounded by pressures ulceration. The patient will be discharged to the retirement to follow up with me. We will schedule evaluation via Interventional Radiology or Cardiology to evaluate for peripheral vascular disease. We will do simple wet-to-dry dressings in the meantime and as far as the venous status, we will work on evaluation for possible erythema. The patient is not a surgical candidate due to his poor vascular and cardiorespiratory status at this time. Renato Bazan MD /[id number] CC: Abdoulaye West MD
== END 2016-07-20 11:05 | DRG 291 ==
LOC: JP.ED 10:22 → JP.ICU 12:46 → JP.MS 07-14 13:52
PROVIDERS: ADMIT Hospitalist; ATTEND Internal Medicine
DX: I13.0 Hypertensive heart and chronic kidney disease with heart failure and stage 1 through stage 4 chronic kidney disease, or unspecified chronic kidney disease (principal); I50.23 Acute on chronic systolic (congestive) heart failure; L03.116 Cellulitis of left lower limb; E87.2 Acidosis; I24.8 Other forms of acute ischemic heart disease; L97.919 Non-pressure chronic ulcer of unspecified part of right lower leg with unspecified severity; L97.929 Non-pressure chronic ulcer of unspecified part of left lower leg with unspecified severity; N17.9 Acute kidney failure, unspecified; N18.3 Chronic kidney disease, stage 3 (moderate); E11.622 Type 2 diabetes mellitus with other skin ulcer; Z66 Do not resuscitate; Z87.891 Personal history of nicotine dependence; I25.10 Atherosclerotic heart disease of native coronary artery without angina pectoris; J44.9 Chronic obstructive pulmonary disease, unspecified; R53.1 Weakness; Z79.4 Long term (current) use of insulin; Z79.84 Long term (current) use of oral hypoglycemic drugs; I73.9 Peripheral vascular disease, unspecified; E78.00 Pure hypercholesterolemia, unspecified; R41.0 Disorientation, unspecified; T36.0X5A Adverse effect of penicillins, initial encounter
CPT/HCPCS: 36415; 36600; 71010 ×2; 80053; 81001; 82803; 83605; 84484; 85025; 87040 ×2; 93005; 93010; 96365; 96375; 99285 ×2; J0295; J1940; J7030; 80048; 82962; 83735; 84443; 85027; 93306; 93925-26; 93925-50; 93970; 93970-26; 94640-76; 97110-GP; 97162-GP; 97530-GP; 97535-GP; A9270-GY; J0696; J1630; J1650; J2060; J2543; J3475; J7050; J7620